=== PATIENT | female | born 1965 | race Caucasian/White ===

== ENCOUNTER 2024-09-01 21:11 | Inpatient (IN) | payer OTHER, SELFPAY ==
[2024-09-01] VITALS (43 sets, daily range): BP systolic 95–235; BP diastolic 67–185
--- NOTE | 2024-09-01 18:50 | ED.CVA ---
History of Present Illness
General
Chief Complaint: CVA/TIA Symptoms
Source: patient and ambulance crew
Exam Limitations: none
Time Seen by Provider: 09/01/24 18:48
Nursing documentation reviewed up to this point in time: agreed with
Onset of Stroke Symptoms
Onset of symptoms known: Yes
Date of onset of symptoms: 09/01/24
Time of onset of symptoms: 17:10
Time pt last seen normal is known: Yes
Date last time pt seen normal: 09/01/24
Time last time pt seen normal: 17:10
History of Present Illness
History of Present Illness:
59-year-old female presents emergency room on stroke alert due to difficulty speaking, and difficulty moving left side. EMS noted a gaze preference.
Past History
Past History
ED Past Medical History: None
ED Past Surgical History: None
Review of Systems
Review of Systems
Allergies reviewed?: Yes
All Other Systems: Not applicable
Phy Exam
Physical Exam
Physical Exam:
Physical Exam
General: Hypertensive
Neck: supple. no meningeal signs. normal posterior pharynx
Heart: s1/s2 regular rate and rhythm, no murmur. equal radial
pulses.
HEENT: Pupils equal round reactive to light, EOMI
Lungs: no acute respiratory distress. clear bilaterally
Abdomen: normal bowel sounds. not tender. no CVAT
Neuro: alert and oriented. no focal neurological deficits, left arm drift
Skin: no rash
Psychiatric: well kept. interactive and cooperative
Extremities: no edema. no calf tenderness. negative homans. good distal pulses
Scores
NIH Stroke Score
Level of Consciousness: 0 - Alert
LOC Questions: 0-Answers both correctly
LOC Commands: 0-Performs both correctly
Best Horizontal Gaze: 0-Normal
Visual [place]: 0=Normal, no visual loss
Facial Palsy: 0=Normal, symmetrical
Motor - Right Arm: 0=No drift 10 seconds
Motor - Left Arm: 1=Drift < 10 seconds
Motor - Right Le-No drift 5 seconds
Motor - Left Le-No drift 5 seconds
Limb Ataxia: 0-Absent
Sensation: 0-Normal
Best Language: 1-Mild aphasia
Dysarthria: 0-Normal
Extinction and Inattention: 0-No abnormality
Total Score:: 2
Thrombolytic Contraindication
Inclusion and Exclusion criteria reviewed: Yes
Reasons for NON-Tx with Thrombolytics ABSOLUTE Exclusions: BP >185/110 and uncontrolled after medication administration
Reasons for NON-Tx with Thrombolytics POSSIBLE Exclusions: Seizure at onset
Stroke Thrombolytic & IAT <6 hours
IAT <6 Hr Exclusion Criteria: Imaging does not show large vessel occlusion as cause of stroke
Course
Orders/Labs/Results
Orders:
Orders
09/01/24 18:43
Electrocardiogram (*1) Urgent
Reason for Study: Other
Other Reason for Exam: Possible Stroke
CT HEAD STROKE ALERT W/o Cont Urgent
Reason For Exam: stroke symptoms
Bedside Glucose- Treatment ONCE
Cardiac Monitoring- Treatment ONCE
EKG- Treatment ONCE
IV Insert/Care/Rem.- Treatment PRN
Vital Signs As Directed
Frequency: Other
Weight As Directed
Frequency: Once
Comment: ZERO STRETCHER SCALE FOR ACCURATE WEIGHT
O2 Therapy [RESP] Urgent
Titrate/Wean O2 to maintain O2 sat greater than (%): 93
Special Instructions: MAINTAIN CONTINUOUS O2 SATS > OR = 93%
09/01/24 18:46
Complete Blood Count/With Diff Urgent
Comprehensive Metabolic Panel Urgent
PTT Urgent
Prothrombin Time Urgent
Troponin I Urgent
09/01/24 18:50
CT HEAD/NECK ANG STROKE ALERT Urgent
Comment:
Reason For Exam: left arm/leg drift, weakness
09/01/24 19:15
Nicardipine 40 mg/200 ml [Cardene] 40 mg in 200 ml IV PER PROTOCOL
Initial dose in mg/hr, then titrate:: 5
Titrate to keep:: BP < 180/105 mmHg
Titrate by mg/hr:: 2.5 mg/hr
Frequency of titrations (minutes):: 5-15 minutes
Maximum dose in mg/hr:: 15
Begin to taper infusion when:: Remained at goal for 2hrs
Taper by mg/hr:: 2.5 mg/hr
Frequency of taper (minutes) if patient maintains goal:: every 15-30 minutes
Taper to off?: Yes
If infusion off & no longer maintaining goal:: Contact Provider
09/01/24 19:17
Lorazepam [Ativan] 2 mg .ROUTE .STK-MED ONE
09/01/24 19:19
Levetiracetam Injectable [Keppra] 1,000 mg .ROUTE .STK-MED ONE
09/01/24 19:26
Propofol 1,000,000 Mcg/100 ml [Diprivan] 1,000,000 mcg in 100 ml .ROUTE .STK-MED
Propofol [Diprivan] 20 ml .ROUTE .STK-MED
09/01/24 19:33
CR Chest Portable - 1 View Urgent
Comment:
Reason For Exam: post intubation
Reason Study Needs to be Portable: Patient Unstable
09/01/24 19:50
ABG [Arterial Blood Gas] Urgent
%Oxygen/Room Air: 100
Comment: pt on vent
09/01/24 19:52
Levetiracetam Injectable [Keppra] 1,000 mg IV NOW STA
09/01/24 19:53
Propofol [Diprivan] 50 mg IV NOW STA
09/01/24 19:58
Triglycerides Routine
Comment: baseline levels with propofol infusion
09/01/24 20:00
Propofol 1,000,000 Mcg/100 ml [Diprivan] 1,000,000 mcg in 100 ml IV PER PROTOCOL
Indication:: Light Sedation
Begin Infusion:: Now
Goal:: RASS 0 to -2
Maximum dose in mcg/kg/min:: 50
Continue currently infusion dose and titrate:: Yes
Titration Instructions:: Titrate by 5-10 mcg/kg/min every 5 minutes until RASS 0 to -2 achieved.
Taper Instructions:: If RASS is at or below goal for 4 consecutive hours decrease infusion by
Taper Instructions:: 5-10 mcg/kg/min every 2 hours to off.
Over-sedation Instructions:: If CPOT 0-2 (at goal) AND RASS -3 to -5 (below goal) decrease sedative by
Over-sedation Instructions:: 50% first. If pain score remains at goal and RASS remains below goal in
Over-sedation Instructions:: 1 hour, decrease opioid infusion by 50%.
Notify provider:: immediately if patient exhibits signs/symptoms of propofol-related
Notify provider:: infusion syndrome.
Additional Instructions:: Patient MUST be mechanically ventilated and MUST recieve analgesia
09/01/24 20:01
Rocuronium [place] [Rocuronium] 50 mg IV NOW STA
09/01/24 20:16
Admit/Transfer Patient As Directed
Co-Sign Provider:
Level of Care: Inpatient admission
Assign to:: ICU
Physician / Group: hospitalist
Diagnosis: hypertensive emergency
Reason for Hospitalization: CVA/TIA/Seizure/ hypertensive emergency
Expected length of stay greater than two midnights?: Yes
ELOS- Estimated Length of Stay in days: 2
I certify the patient meets the requirements for IP care: Yes
PRN Pain Medication Management As Directed
May give lesser potent ordered pain med per pt: Yes
preference::
Protocol:: Medication orders for pain may be administered in a
manner that supports deferring to patient preference
when the pt is:
- Requesting an ordered lesser potent pain medication.
Least to most potent pain medications are defined
as: acetaminophen < NSAID < tramadol < opioids
(morphine, oxycodone, hydromorphone).
- Requesting a lesser dose of the same medication IF
ORDERED.
- Requesting a less intrusive route of administration
if both routes are prescribed by the provider (PO <
IV).
09/01/24 20:17
Code Status As Directed
Resuscitation Status: Full Code
09/01/24 20:29
Propofol [Diprivan] 20 ml .ROUTE .STK-MED
09/01/24 20:38
Lorazepam [Ativan] 2 mg .ROUTE .STK-MED ONE
09/01/24 20:39
ABG [Arterial Blood Gas] Stat
%Oxygen/Room Air: 50
09/01/24 20:40
Lorazepam [Ativan] 2 mg IV NOW STA
09/02/24 Breakfast
NPO
Allow oral meds: No
Allow clear liquids: No
09/02/24 08:00
Polyethylene Glycol Powder [Miralax] 17 grams TUBE DAILY
09/04/24 06:00
Triglycerides Q3D
Comment: every 72 hours while patient is on propofol
09/07/24 06:00
Triglycerides Q3D
Comment: every 72 hours while patient is on propofol
09/10/24 06:00
Triglycerides Q3D
Comment: every 72 hours while patient is on propofol
Abnormal Lab Results
09/01/24 09/01/24 09/01/24
18:44 18:46 19:50
RBC 3.97 L 10^6/uL
(4.20-5.40)
Hct 36.8 L %
(37.0-47.0)
MCH 32.2 H pg
(27.0-31.0)
pH 7.16 L*
(7.35-7.45)
pCO2 46 H mmHg
(32-35)
pO2 117 H mmHg
(83-108)
HCO3 16.4 L mmol/L
(21-28)
ABG O2 Sat (Measured) 100.0 H %
(94-98)
Sodium 132 L mmol/L
(135-145)
Chloride 95 L mmol/L
(98-107)
BUN 6 L mg/dl
(7-17)
Glucose 184 H mg/dl
(70-99)
POC Glucose 187 H mg/dl
(70-99)
09/01/24 18:46
09/01/24 18:46
Vital Signs
Initial and Last Documented VS:
Initial Vital Signs
Pulse Ox
89
09/01/24 18:44
Last Documented Vital Signs
Pulse Resp BP Pulse Ox
134 31 143/85 99
09/01/24 20:45 09/01/24 20:45 09/01/24 20:45 09/01/24 20:35
Procedures
Intubations
Method of Intubation: glidescope
Tube size (cm): 7.0
Placement confirmed by: auscutation, CXR, capnography and direct visualization
Breath sounds after intubation: equal
Intubation complications: no complications
MDM/Problems Addressed
Differential Diagnosis Includes:
Intracranial hemorrhage, CVA, hypertensive cephalopathy, seizure
MDM/Problems Addressed:
59-year-old female with hypertensive cephalopathy, seizure, respiratory failure. Cardene drip, propofol drip, Keppra given. Patient presented awake, and then had left-sided weakness which progressed into a seizure, after receiving her head CT.
She was initially a stroke alert. Patient was started on propofol and intubated to protect airway, propofol for seizure treatment. Admit to ICU. Patient not candidate for TNK due to seizure and blood pressure.
Chronic conditions affecting care: Other (Patient has not seen a doctor in many years)
*Radiology
Radiology exam reviewed: radiology read reviewed (CT head and CT angiography head and neck no acute findings)
*Pulse Oximetry
Patient hypoxic: no
*EKG
Interpreted by ED Provider?: Yes
EKG Intrepretation Date: 09/01/24
EKG Intrepretation Time: 19:11
Interpretation: abnormal
Comparison EKG: no comparison EKG present
Heart Rate: 137
Rate: tachycardiac
Rhythm: sinus tachycardia
[place]: normal axis
Interval: normal interval
QRS Pattern: normal QRS
Ischemia: no ischemia
*Protocol Officer Interpretation
Rate: tachycardiac
Interpretation: abnormal
Heart Rate: 133
Rhythm: sinus tachycardia
*Critical Care Note
Total Time (30-74mins, 75-104mins- exclusive of procedures): 45
comment:
Critical care statement: A total of 45 minutes of critical care time was provided for this patient. This includes management of unstable vital signs, evaluation of the patient at bedside, reviewing the patient's pertinent medical records, discussion
with consultants, review of old EKGs and review of pertinent medical records. This time with separate from time utilized to perform the aforementioned documented procedures
Data Reviewed
Prescriptions/Medications Considered But Not Given:
TNK considered but not indicated.
Patient Management
Social determinants of health affecting care: Poor outpatient follow-up
Discussion with other providers: Hospitalist and Tax Senior Associate (Neurology, Dr. Woods)
Escalation/DeEscalation of care consider admission/obs:
ICU admission indicated
ED Attending Note
-
Portions of this chart may have been created with voice recognition software.� Occasional wrong word or��sound alike� substitutions may have occurred due to the inherent limitations of voice recognition software.
Discharge Plan
Departure
Patient Disposition: Admit
Date of Disposition: 09/01/24
Time of Disposition: 19:35
Admit to: ICU
Presentation/result/management discussed w/ accepting MD/DO: Hospitalist
Patient with high blood pressure during this ER visit?: Yes
Condition: Serious
Discharge Problem:
Hypertensive encephalopathy syndrome, Hypertensive emergency, Respiratory failure, Seizure
Interventions
Interventions:
*Risk Screen - Suicide Last Done: 09/01/24 20:13
*General Assessment Last Done: 09/01/24 20:13
*Neglect/Abuse Screening Last Done: 09/01/24 20:13
ED- Fall Risk Assessment Last Done: 09/01/24 20:13
*ED COVID-19 Vaccine History Last Done: 09/01/24 20:13
ED- Pulmonary Assessment Last Done: 09/01/24 19:00
ED- Neurological Assessment Last Done: 09/01/24 19:18
ED- Cardiac Assessment Last Done: 09/01/24 20:13
ED Swallowing Screen Last Done: 09/01/24 19:00
Discharge Date and Time
Print Language: CANADIAN
[2024-09-01 18:52] LABS: % Basophils 0.6 % (0-2); % Eosinophils 0.8 % (0-6); % Immature Granulocytes 0.5 % (0-0.5); % Lymphocytes 22.5 % (20.5-51.1); % Monocytes 6.2 % (1.7-9.3); % Neutrophils 69.4 % (42.2-75.2); Absolute Basophils 0.1 10^3/uL (0-0.2); Absolute Eosinophils 0.1 10^3/uL (0-0.7); Absolute Lymphocytes 1.9 10^3/uL (1.2-3.4); Absolute Monocytes 0.5 10^3/uL (0.1-0.6); Absolute Neutrophils 5.9 10^3/uL (1.4-6.5); Hematocrit 36.8 % (37.0-47.0); Hemoglobin 12.8 g/dL (12.0-16.0); Mean Corp Hgb Conc. 34.8 g/dL (33.0-37.0); Mean Corpuscular Hgb 32.2 pg (27.0-31.0); Mean Corpuscular Volume 92.7 fL (81.0-99.0); Mean Platelet Volume 9.3 fL (7.4-10.4); Nucleated Red Blood Cells % 0 %; Platelet Count 258 10^3/uL (130-400); Red Blood Cell Count 3.97 10^6/uL (4.20-5.40); Red Cell Dist. Width 13.5 % (11.5-14.5); White Blood Cell Count 8.6 10^3/uL (4.8-10.8)
[2024-09-01 18:54] LABS: Glucose - Point of Care 187 mg/dl (70-99)
[2024-09-01 19:11] LABS: INR 1.01; PT 13.1 Sec (11.4-14.6)
[2024-09-01 19:12] LABS: APTT 23.8 Sec (23.4-35.0)
[2024-09-01 19:17] LABS: ALT (SGPT) 21 U/L (0-35); AST (SGOT) 30 U/L (14-36); Albumin 4.8 g/dl (3.5-5.0); Alkaline Phosphatase 68 U/L (38-126); Blood Urea Nitrogen 6 mg/dl (7-17); Calcium 10.1 mg/dl (8.4-10.2); Carbon Dioxide 22 mmol/L (22-30); Chloride 95 mmol/L (98-107); Glucose 184 mg/dl (70-99); Potassium 3.9 mmol/L (3.5-5.1); Sodium 132 mmol/L (135-145); Total Bilirubin 0.5 mg/dl (0.2-1.3); Total Protein 7.7 g/dl (6.3-8.2); eGFR > 60.00
[2024-09-01] MEDS: CARDENE 200 IV (19:18)
[2024-09-01] MEDS: KEPPRA 1000 MG IV (19:24)
[2024-09-01 19:28] LABS: Troponin I < 0.012 ng/ml
[2024-09-01] MEDS: DIPRIVAN 50 MG IV (19:28)
[2024-09-01] MEDS: ROCURONIUM 50 MG IV (19:29)
[2024-09-01] MEDS: DIPRIVAN 100 IV (19:30)
[2024-09-01 20:01] LABS: HCO3 16.4 mmol/L (21-28); PCO2 46 mmHg (32-35); PO2 117 mmHg (83-108)
[2024-09-01 20:03] LABS: pH 7.16 (7.35-7.45)
--- NOTE | 2024-09-01 20:29 | HPS.HSE ---
Family Physician
-
Family Physician: INTERVIEWE UNKNOWN - PT NOT
Chief Complaint
-
Stroke alert for difficulty speaking
History of Present Illness
This is a 59-year-old female with unknown past medical history who presents to the emergency department via a stroke alert for difficulty speaking. Patient intubated at time of my interview unable to get a history from patient.
On arrival in the emergency department the patient had the difficulty moving left side. She was confused and incoherent. She had a CT scan and upon arrival from the CT scan started having generalized tonic-clonic seizures. She was very
hypertensive and with the seizures the patient was sedated and intubated.
Initial blood pressure was 231/140, she was tachycardic to the 130s respiratory was 16 with oxygen saturation of 97%. ECG shows sinus tachycardia at 137. Chest x-ray shows a left basilar atelectasis but otherwise shows no infiltrates or
pneumothorax and the ET tube was separately placed. CT of the head shows no acute bleed, massive stroke or mass effect. The CT angio shows no critical or hemodynamically significant significant stenosis
CBC was unremarkable with normal white count hemoglobin of 12.8 and a platelet count of 258. Troponin was negative. Chemistries were notable for a sodium of 132 but otherwise unremarkable. LFTs were normal.
Medical History
Past Medical History
Past Medical History: Reports Other (Unable to determine)
Past Surgical History: Reports Other (Unable to determine)
Social History
Unable to obtain full social history at this time due to: Patient Intubation
Family History
Family History: Unable to Obtain
Allergies / Home Medications
Allergies reflects when Allergies were last updated in [facility].
Home Medications with original date entered in [facility]
Allergy/Medication List:
Allergies
Allergy/AdvReac Type Severity Reaction Status Date / Time
No Known Allergies Allergy Verified 09/01/24 19:14
If medication reconciliation has not been performed, why?: Unresponsive
Review of Systems
-
Unable to obtain full review of systems at this time due to: Patient Intubation
Physical Exam
Vital Signs
Vital Signs
Pulse Resp BP Pulse Ox
150 18 179/123 98
09/01/24 20:20 09/01/24 20:20 09/01/24 20:20 09/01/24 20:20
Physical Exam
General: Well Developed and Intubated
HEENT: NormoCephalic, Anicteric, Moist mucous membranes, Atraumatic and PERRLA
Respiratory: Clear
Cardiac: S1/S2, Regular Rhythm and Tachycardia
Breast: Deferred by me
GI: Soft, Non Tender, Non Distended and Normal Bowel Sounds
Rectal: Deferred by Provider
Genito-urinary: Deferred by me
Musculoskeletal: No Clubbing, No Cyanosis and No Edema
Skin: Warm and Rash (livedo )
Neuro: Sedated
Hematologic/Lymphatic: No Lymphadenopathy
Laboratory Results
-
09/01/24 18:46
09/01/24 18:46
Laboratory Results
PT 13.1 Sec (11.4-14.6) 09/01/24 18:46
INR 1.01 09/01/24 18:46
APTT 23.8 Sec (23.4-35.0) 09/01/24 18:46
pH 7.16 (7.35-7.45) L* 09/01/24 19:50
pCO2 46 mmHg (32-35) H 09/01/24 19:50
pO2 117 mmHg (83-108) H 09/01/24 19:50
HCO3 16.4 mmol/L (21-28) L 09/01/24 19:50
Total Bilirubin 0.5 mg/dl (0.2-1.3) 09/01/24 18:46
AST 30 U/L (14-36) 09/01/24 18:46
ALT 21 U/L (0-35) 09/01/24 18:46
Alkaline Phosphatase 68 U/L (38-126) 09/01/24 18:46
Troponin I < 0.012 ng/ml 09/01/24 18:46
Data Reviewed
-
Diagnostic Radiology: Image Personally Visualized and interpreted
CT Scan: Report Reviewed by me
Medical Tests (Nuc Med, Echo, EKG etc): Image Personally Visualized and interpreted
Lab Data: Labs Reviewed by me
Old Records: Reviewed
Impression/Plan
-
IMPRESSION:
PLAN:
1. Hypertensive emergency - Patient hypertensive to 231/140 on arrival. Encephalopathic with left sided weakness followed by developement of seizure. ECG non-ischemic. Trop negative. CT head negative. Labs unremarkable.
- admit to icu
- nicardipine gtt, target SBP < 160 for now
- echo in am
- NPO
2. Seizure d/o - New onset seizures in setting of hypertensive emergency. No intracranial hemorrhage on initial head CT prior to the seizures.
- propofol gtt
- keppra 1g iv q 12
- neuro exams q 6
- neurology consulted
3. CVA/TIA - unclear, report of left sided weakness and aphasia triggering stroke alert. Hypertensive emergency and seizure, not a tpa candidate. CT head negative.
- d/w neuro. hemodynamic management and seizure tx for now
- no asa or plavix
- cardiovascular labs, echo in am
- repeat CT head in am
- mri pending stabilization
4. Pulm - Intuabed
- ac 18 400 50 5. Repeat gas in 30 minutes
- gi ppx with ppi
- scds for now
- [employer] certified network associate consulted.
Code Status full code
[2024-09-01] MEDS: ATIVAN 2 MG IV (20:41)
--- NOTE | 2024-09-01 20:47 | RESPNOTE ---
pt intubated in ED,pt preoxygenated via ambu bag prior to intubation. tolerated intubation well. 7.0 ETT @ 22cm placed. tolerating above vent settings well, will continue to monitor.
[2024-09-01 21:04] LABS: B.E. -2.4 mmol/L; HCO3 21.2 mmol/L (21-28); PCO2 32 mmHg (32-35); PO2 123 mmHg (83-108); pH 7.43 (7.35-7.45)
[2024-09-01 21:11] LABS: Amphetamines Negative (Negative); Barbiturates Negative (Negative); Benzodiazepines Negative (Negative); Buprenorphine Negative (Negative); Cocaine Negative (Negative); Marijuana Negative (Negative); Methadone Negative (Negative); Methamphetamines Negative (Negative); Opiates Negative (Negative); Phencyclidine Negative (Negative); Tricyclic Antidepressants Negative (Negative)
[2024-09-01 21:35] LABS: Triglycerides 144 mg/dl (10-149)
[2024-09-01 21:38] LABS: Alcohol None Detected
[2024-09-01] MEDS: SUBLIMAZE 50 MCG IV (21:40)
[2024-09-01] MEDS: SUBLIMAZE 100 IV (21:51)
[2024-09-01 22:26] LABS: Urine Albumin Negative (Neg - Trace); Urine Bilirubin Negative (Negative); Urine Character Clear (Clear); Urine Color Yellow; Urine Glucose 3+ (Negative); Urine Ketone Trace (Negative); Urine Leukocyte Negative (Negative); Urine Nitrite Negative (Negative); Urine Occult Blood Negative (Negative); Urine Urobilinogen Negative (Neg - 1+)
[2024-09-01 23:24] LABS: Blood Urea Nitrogen 8 mg/dl (7-17); Calcium 9.8 mg/dl (8.4-10.2); Carbon Dioxide 24 mmol/L (22-30); Chloride 95 mmol/L (98-107); Glucose 162 mg/dl (70-99); Potassium 4.4 mmol/L (3.5-5.1); Sodium 131 mmol/L (135-145); eGFR > 60.00
[2024-09-02] VITALS (82 sets, daily range): BP systolic 66–152; BP diastolic 47–131; BMI 20.5
[2024-09-02] MEDS: SUBLIMAZE 50 MCG IV ×7 (00:16→22:08)
[2024-09-02] MEDS: DIPRIVAN 100 IV ×2 (00:55→06:06)
--- NOTE | 2024-09-02 01:10 | PTCARENOTE ---
rec`d pt at 2230, intubated and sedated on prop. pt restless in bed. fent gtt started. scds. st on monitor. afebrile. msas ordered. #7 ett on rt @22. vent settings 18/400/40%/5 of peep. 99% POX. therm dempsey. restraints placed as ordered. 18 left
FA, 18 left AC and 18 rt AC. prop and fent gtts. at bedside. safe environment maintained.
[2024-09-02] MEDS: TYLENOL 650 MG PO (02:23)
[2024-09-02 03:39] LABS: Hematocrit 27.6 % (37.0-47.0); Hemoglobin 9.6 g/dL (12.0-16.0); Mean Corp Hgb Conc. 34.8 g/dL (33.0-37.0); Mean Corpuscular Hgb 31.6 pg (27.0-31.0); Mean Corpuscular Volume 90.8 fL (81.0-99.0); Mean Platelet Volume 9.2 fL (7.4-10.4); Platelet Count 215 10^3/uL (130-400); Red Blood Cell Count 3.04 10^6/uL (4.20-5.40); Red Cell Dist. Width 13.4 % (11.5-14.5); White Blood Cell Count 8.4 10^3/uL (4.8-10.8)
[2024-09-02 03:42] LABS: INR 1.12; PT 14.3 Sec (11.4-14.6)
[2024-09-02 03:43] LABS: APTT 23.8 Sec (23.4-35.0)
[2024-09-02 04:11] LABS: Blood Urea Nitrogen 7 mg/dl (7-17); Calcium 8.7 mg/dl (8.4-10.2); Carbon Dioxide 19 mmol/L (22-30); Chloride 103 mmol/L (98-107); Glucose 75 mg/dl (70-99); HDL Cholesterol 64 mg/dl; LDL Cholesterol, Calculated 171 mg/dl; Potassium 3.2 mmol/L (3.5-5.1); Sodium 135 mmol/L (135-145); Total Cholesterol 250 mg/dl (50-199); Triglyceride 77 mg/dl (10-149); Very Low Density Lipoprotein 15 mg/dl (0-30); eGFR > 60.00
[2024-09-02] MEDS: SUBLIMAZE 100 IV (04:51)
[2024-09-02] MEDS: KCL ELIXIR 40 MEQ TUBE (05:23)
--- NOTE | 2024-09-02 07:31 | CON.INTV ---
Consultation
Consultation Request
Date/Time Consultation Requested: 09/02/24
Date/Time Consultation Performed: 09/02/24
Performing Provider: Indira
Reason for Consultation: ICU
Medical History
-
History of Present Illness:
Patient is a 59-year-old female with previous unknown past history presenting to ER for difficulty speaking and moving left side. She was notably confused and incoherent, stroke alert was called. Upon arrival from CT scan she developed
witnessed generalized tonic-clonic seizures. She was then intubated and sedated. Initial blood pressure was notably 231/140, heart rate 130s. CT initially is negative. CT angio demonstrating no critical or hemodynamic stenosis. She is now
admitted to ICU for further management.
.
Past Medical History
Past Medical History: Other (see list below)
Social History
Tobacco: Non-smoker
Alcohol: Former
Drug: None
Family History
Family History: Reviewed & Not Pertinent
Allergies / Home Medications
Allergies
Allergy/AdvReac Type Severity Reaction Status Date / Time
No Known Allergies Allergy Verified 09/01/24 19:14
Review of Systems
-
Unable to Obtain full review of systems at this time due to: Patient Intubation
History Source: Family and Transfer Record
Vitals / Labs / Diagnostic Testing
Vital Signs
Temp Pulse Resp BP Pulse Ox
100.9 F H 102 21 152/131 96
09/02/24 03:34 09/02/24 05:30 09/02/24 05:30 09/02/24 05:30 09/02/24 04:00
Lab Data
09/02/24 03:24
09/02/24 03:24
Laboratory Results
09/01/24 09/01/24 09/01/24
18:46 19:50 20:53
PT 13.1
INR 1.01
APTT 23.8
pH 7.16 L* 7.43
pCO2 46 H 32
pO2 117 H 123 H
HCO3 16.4 L 21.2
O2 Delivery Level
09/02/24
03:24
PT 14.3
INR 1.12
APTT 23.8
pH
pCO2
pO2
HCO3
O2 Delivery Level
Diagnostic Testing:
Physical Exam
-
HEENT: Normocephalic, Anicteric and Moist Mucous Membranes
Cardiovascular: S1/S2 and Regular Rhythm
Respiratory: Clear and Non-Labored Respirations
GI: Soft, Non Distended and Non Tender
Neurology: Awake, Alert, No Motor Deficits and Other (confused, lethargic)
Skin: Warm and Dry
General: Comfortable and Other (NAD)
Assessment
-
Patient is a 59-year-old female with previous unknown past history presenting to ER for difficulty speaking and moving left side. She was notably confused and incoherent, stroke alert was called. Upon arrival from CT scan she developed
witnessed generalized tonic-clonic seizures. She was then intubated and sedated. Initial blood pressure was notably 231/140, heart rate 130s. CT initially is negative. CT angio demonstrating no critical or hemodynamic stenosis. She is now
admitted to ICU for further management.
Acute witnessed generalized tonic-clonic seizure
s/p Intubation for airway protection
Confusion/left-sided weakness/aphasia
Hypertensive emergency 231/140
Hyponatremia, mild
Hyperglycemia
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
Chronic ETOH use history, sober last month
HTN
Plan
+ current signs of metabolic encephalopathy, possibly postictal
Had witnessed tonic-clonic seizure, placed on propofol, EEG negative
Neurology evaluation obtained
notes there is chronic alcohol history, patient has been drinking every day previously but had cut down in the past year and 1/2-1 to 2 drinks per week.
He notes that they both have gone cold turkey in the last 30 days.
She has no prior history of seizure disorder
Pain/sedation: Fentanyl/propofol, can start weaning sedation. Add Precedex and phenobarb taper
RASS goals: 0
Need eventual MRI
Hemodynamically stable, not requiring pressors.
Cardiac history reviewed--hypertension, not on medications
Off Cardene prolonged time spent coordinating with
ECHO reviewed indicating possible right atrial mass, discussed with cardiology
Consult placed
Will obtain CTA imaging as well
Monitor on telemetry
Intubated for airway protection
Vent setting reviewed: AC 400/18/40/5+
Prior history of lung disease: None
Supplemental O2 as indicated to maintain sats > 89%
CXR/CT reviewed indicating no acute disease
SBT planning
NPO, resume diet when able
Electronics Design Engineer recommendations
Aspiration precautions, HOB > 30 degrees
Speech therapy eval can be considered if at elevated risk
GI prophylaxis if indicated for mechanical ventilation >48 hours, prior history of GERD, stress ulcer formation in the critically ill
Creat at baseline, no history of renal disease
Void trials
Follow urine output, critical I/Os
Replete electrolytes as needed
No signs/symptoms suspicious for infectious etiology at this time
Observe off antibiotics for now
Follow fever trend, WBC count
CBC stable, no signs of bleeding or coagulopathy.
DVT prophylaxis as assessed based on risk, including mechanical SCDs
Can transfuse if indicated for Hb <7, plt < 10
INR WNL
No prior h/o diabetes or thyroid disease
Monitor accuchecks PRN/SS coverage if needed
Diagnostic Data
Chest X-Ray: 09/01/24- Endotracheal tube with tip in trachea approximately 1.5 cm above the donta and nasogastric tube with tip in the stomach. No pneumothorax. Mildly elevated left hemidiaphragm with likely mild left basilar subsegmental
atelectasis.
CT Scan: HEAD 09/02/24- No acute intracranial abnormality noted. Chronic opacification of the left maxillary and frontal sinuses.
H&N 09/01/24- No findings to suggest proximal intracranial arterial stenosis or vessel cut off bilaterally.
Nonhemodynamically significant atherosclerotic changes in the carotid bulbs and proximal internal carotid arteries bilaterally.
No findings to suggest internal carotid artery or vertebral artery dissection bilaterally.
Echo: pending
PFT's:
Reports and relevant images were personally reviewed.
-----
Critical care time 100 mins -- this includes review of history, physical exam, medications, hemodynamic/ventilator parameters, laboratory data, imaging and discussion with house staff, pharmacy, respiratory therapy, wood flooring specialist, and nursing.
Prolonged time spent coordinating with cardiology, radiology and care team.
[2024-09-02] MEDS: MIRALAX TUBE (07:58)
[2024-09-02] MEDS: KEPPRA 1000 MG IV ×2 (08:51→21:10)
[2024-09-02] MEDS: PROTONIX IV 40 MG IV (08:51)
[2024-09-02 09:25] LABS: Glycohemoglobin (HgbA1c) 5.1 % (4.0-5.6)
--- NOTE | 2024-09-02 11:19 | CM ---
CM following re: discharge planning.
Discussed in Rounds, reviewed pt's chart met with pt and pt's at bedside. .
Pt is a 59 year old female, admitted with primary dx of Hypertensive emergency, Seizure d/o - New onset seizures in setting of hypertensive emergency. Per Rounds meeting, pt remains intubated, continue supportive care.
Per , pt lives with him in a 2SH, 2 steps to enter, couple have no children. 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 No DME, VN or SNF history.
PCP: Tano Smith
Pharmacy: [facility]
D/C plan; uncertain at this time and will depend on pt's progress.
CM will follow with discharge plan updates as hospitalization progresses
[2024-09-02 11:23] LABS: Hemoglobin 10.4 g/dL (12.0-16.0); Mean Corp Hgb Conc. 34.7 g/dL (33.0-37.0); Mean Corpuscular Hgb 31.7 pg (27.0-31.0); Mean Corpuscular Volume 91.5 fL (81.0-99.0); Mean Platelet Volume 9.5 fL (7.4-10.4); Platelet Count 225 10^3/uL (130-400); Red Blood Cell Count 3.28 10^6/uL (4.20-5.40); Red Cell Dist. Width 13.6 % (11.5-14.5); White Blood Cell Count 9.7 10^3/uL (4.8-10.8)
[2024-09-02 11:38] LABS: Blood Urea Nitrogen 8 mg/dl (7-17); Calcium 8.5 mg/dl (8.4-10.2); Carbon Dioxide 19 mmol/L (22-30); Chloride 104 mmol/L (98-107); Glucose 85 mg/dl (70-99); Magnesium 1.5 mg/dl (1.6-2.3); Phosphorus 2.9 mg/dl (2.5-4.5); Potassium 3.7 mmol/L (3.5-5.1); Sodium 135 mmol/L (135-145); eGFR > 60.00
[2024-09-02] MEDS: D5/0.45%NSS with KCL 20 MEQ 1000 IV (11:42)
--- NOTE | 2024-09-02 12:04 | PTCARENOTE ---
Received pt at 0700, restless and agitated. Fentanyl boluses given and gtt increased per protocol. Low BP around 1030. Propofol gtt dose cut in half. Pt restless and resistant to care but follows commands at times.
Sinus rhythm on monitor. Tolerating vent. Lungs course. Scant secretions.
No BM. Low urine output. IVF started.
All other assessments unchanged.
EEG and ECHO completed.
--- NOTE | 2024-09-02 12:26 | W.PN.HOSP.TC ---
Today's Communication/Plan
-
see bold
Assessment / Plan
Assessment / Plan
Gen: NAD, NCAT
Neck: supple.
CV: RRR, +S1/S2, no m/r/g.
Resp: CTAB, no rales, wheezes, or rhonchi.
Abd: +BS, soft, NT, ND
Skin: No rashes.
Neuro: sedated
Psych: calm
CTA head/neck 09/01/24: No findings to suggest proximal intracranial arterial stenosis or vessel cut off bilaterally. Nonhemodynamically significant atherosclerotic changes in the carotid bulbs and proximal internal carotid arteries bilaterally. No
findings to suggest internal carotid artery or vertebral artery dissection bilaterally.
CXR 09/02/24: Stable positioning of the support lines and tubes. Minimal left basilar atelectasis, unchanged.
CT brain 09/02/24: No acute intracranial abnormality noted. Chronic opacification of the left maxillary and frontal sinuses.
Seizure activity:
-note, presented with reports of left-sided weakness and expressive aphasia. The patient was not a TNK candidate.
-Currently intubated and sedated (acute hypoxemic and hypercapnic respiratory failure)
-Currently on fentanyl/propofol infusions
-currently on assist control MV. Plan is to wean sedation and attempt extubation after SBT today as per pier master assistant.
-cont Keppra
-check EEG
-neuro following
-check MRI brain (timing to be discussed with neuro and pier master assistant)
Hypertensive emergency:
-was on nicardipine gtt, now off
-allow for permissive HTN
-check echo
Hypokalemia, resolved
Total critical care time spent = 35 min
Anticipated Discharge: > 48 hours
Subjective/Interval History
-
Date of Service: September 02, 2024
Objective Data
-
Labs:
Laboratory Results
09/02/24 09/02/24 09/02/24
03:24 11:06 11:07
WBC 8.4 9.7
Hgb 9.6 L D 10.4 L
Hct 27.6 L 30.0 L
Plt Count 215 225
PT 14.3
INR 1.12
APTT 23.8
Sodium 135 135
Potassium 3.2 L D 3.7
Chloride 103 104
Carbon Dioxide 19 L 19 L
BUN 7 8
Creatinine 0.7 0.7
Glucose 75 85
Calcium 8.7 8.5
Vital Signs:
Vital Signs
Temp Pulse Resp BP Pulse Ox
98.8 F 71 18 95/77 100
09/02/24 11:58 09/02/24 11:02 09/02/24 11:02 09/02/24 11:02 09/02/24 11:00
I&O
09/01/24 09/02/24 09/03/24
06:59 06:59 06:59
Intake Total 115.8 / 135.1 129.9 / 129.9
Output Total 610 / 625 95 / 95
Balance -494.2 / -489.9 34.9 / 34.9
--- NOTE | 2024-09-02 13:19 | EEG.RPT ---
Electroencephalogram Report
Recording
Date of EE09/02/24
Type of EEG: Routine
Length of EEG recordin mins
Done with Video Recording: Yes
Patient Status: Inpatient
Recording Conditions: Other (sedated)
Hyperventilation Performed: No
Photic Stimulation Performed: Yes
Report
METHODS
A 21 channel digitized electroencephalogram was performed at [facility] The 10/20 international system of electrode placement was used. In addition to EEG, the patient was monitored for EKG. The duration of the recording was 27 minutes.
BACKGROUND
During the awake state, with the eyes closed, the background consisted of a normal amplitude, up to 10 Hertz posterior reactive rhythm that attenuated appropriately with eye opening. At times the study consisted of diffuse slowing of the background
to 4-7Hz frequencies.
PHOTIC STIMULATION
Photic stimulation using a step-mejias increase in photic frequency varying from 1-31 Hertz resulted in no driving responses but no appearance of abnormal activity.
CLINICAL EVENTS
An episode of 'full body movement' had no epileptiform correlate.
INTERPRETATION AND CLINICAL CORRELATION
This EEG is abnormal due to the presence of diffuse slowing of the background to delta to theta range frequencies but was at times normal. The study is consistent with mild to moderate diffuse cerebral dysfunction, nonspecific in etiology. An
episode of 'full body movement' had no epileptiform correlate. The study was limited at times by muscle artifact.
[2024-09-02] MEDS: PRECEDEX 100 IV (13:30)
--- NOTE | 2024-09-02 14:28 | CON.CAR ---
Addendum entered and electronically signed by Camilla Steele DO 09/03/24 07:24:
I saw and examined the patient.
The Mining Teacher's note was reviewed and I agree with the note.
Comment: Patient seen and examined 09/02/24 with cardiac PA after 2D echocardiogram. This is a late entry. Clara is a 59 yo F with PMH of bulimia, ETOH disorder (who stopped drinking with her last month per ) and is a life long
nonsmoker. She presented 09/01/24 as a stroke alert with new altered mental status with altered speech, confusion, left sided weakness with HTN emergency and reported BP 230/140mmHg. She has no history of HTN. states she had complained of
headaches over the last week or two. Patient's does not note recent complaints and patient of chest pain, shortness of breath, palpitations, lightheadedness or dizziness. Denies edema. states she was recently laid off of her job
which has been a source of stress recently. No alcohol detected in patient on arrival. UDS negative.
She was seen but Neurology for stroke alert. She was not felt to be a TNK candidate. She then had seizure activity upon return from CT scan in ER and was intubated for airway support. Head CTs serially negative for CVA; brain MRI unable to be
obtained while intubated. Following intubation she was placed on Nicardipine drip, Keppra and propofol and has had no further seizures. EEG showed diffuse slowing of the background frequencies without epileptiform discharges per neurology. Denies
history of hypertension. She remains agitated with attempting to wean sedation and failure wean today. She is off Cardene gtt with low BP today, currently 100s/70s. She is sinus in the 60-70s. No arrhythmia on telemetry. with BP Echocardiogram
today prompted cardiology consult.
Echocardiogram was technically difficult with normal LV systolikc function, Left ventricular ejection fraction estimated by Alford's method 60-65%. Mild to moderate concentric left ventricular hypertrophy. Mildly reduced right ventricle systolic
function with mildly increased right ventricular wall thickness. Right atrium poorly visualized. There is a nonmobile echodensity 2.4 x 2.0 cm in the right atrium; and limited subcostal views this may represent lipomatous hypertrophy of the
interatrial septum however cannot exclude a right atrial mass. Trace mitral regurgitation. Trileaflet, mildly sclerotic aortic valve without stenosis or significant regurgitation. Trace tricuspid regurgitation. Estimated pulmonary artery pressure of
27 mmHg assuming a right atrial pressure of 3 mmHg. Trivial-small pericardial effusion. Dilated aortic root. Sinus of Valsalva measures 4.1 cm. Interatrial septum is poorly visualized but in limited subcostal views appears lipomatous.
General: Intubated and sedated, with some voluntary movements. in restraints.
HEENT: ETT, mmm
Respiratory: Clear and Non Labored Respirations
Cardiac: S1/S2, Regular Rhythm no murmur. no rub
GI: Soft, Non Tender, Non Distended and Normal Bowel Sounds
Musculoskeletal: No Edema. no rash.
Plan:
Presented with HTN emergency without prior history of HTN and concern for stroke with left sided weakness, confusion anf fixed left lateral gaze who suffred witness seizure in ER now intubated and sedated.
-Patient initially on IV Cardene which is now off with hypotension today
-Monitor BP trends and avoid hypotension; BP current 100/70s
-Monitor tele- no arrhythmia so far
-EKG reviewed. Initial ST with NSST with repeat NSR with iRBBB.
-Neurology consulted: eventual MRI. EEG today without further seizure activity
-Labs reviewed: NA was 132, K3.2. CO2 initially 24, than 17-19. BUN/Cr 0.6. elevated BS with HbA1C 5.1%. Mag 1.5. CTNI < 0.012. TC 250, LDL 171, HDL 64, TG 77. Hb 12.8 than 9.6 now 10.4. normal WBC/plts
-Consider addition of aspirin per neurology
-LDL 171, consider addition of statin when able
-Monitor K/Mag and replete as needed
-Cardiology consulted due to abnormality of right atrium by echo 09/02/2024
-Discussed with crematory attendant and hospitalist
-Technically difficult study. Echodensity likely part of a suspected lipomatous septum but will need additional imaging to completely less likely RA mass
-Will plan for CT chest to see if mass is visualized
-Pending results can consider repeat TTE or MELY
Original Note:
Consultation
Consultation Request
Date/Time Consultation Performed: 09/02/24
Requesting Provider: Dr. Nely Jacobson
Performing Provider: Brielle Roca PA-C for Dr. Steele
Reason for Consultation: abnormal echo, CVA
Medical History
-
Chief Complaint: change in mental status
History of Present Illness:
Patient is a 59 yo F with PMH of bulimia, ETOH disorder (who stopped drinking with her last month per ). had noted that patient had L lateral gaze around 4:30 yesterday afternoon. He also noted she had altered speech,
confusion, and was off balance when she got up to attempt to walk to bathroom. She was not felt to be TNK candidate. She then had seizure activity upon return from CT scan in ER and was intubated, sedated. Head CTs serially negative for CVA, brain
MRI unable to be obtained while intubated. She had hypertensive emergency on arrival. states she had complained of headaches over the last week or two. Denies history of hypertension. Remains agitated with attempting to wean sedation.
Echocardiogram today showed preserved EF with nonmobile echodensity in right atrium, resulting in cardiology consultation. Patient's does not note recent complaints and patient of chest pain, shortness of breath, palpitations,
lightheadedness or dizziness. states she was recently laid off of her job which has been a source of stress recently. No alcohol detected in patient on arrival. UDS negative.
PMH:
EtOH disorder
History of bulimia
Past Medical History
Past Medical History: Other (in HPI)
Social History
Tobacco: Non-Smoker
Alcohol: Former
Personal:
Living: With Family
Employment: Not Employed (recently laid off)
Family History
Family History: CAD ( and CVA in father)
Allergies / Home Medications
Allergy/AdvReac Type Severity Reaction Status Date / Time
No Known Allergies Allergy Verified 09/01/24 19:14
Review of Systems
-
Unable to obtain full review of systems at this time due to: Patient Intubation
History Source: Family
Physical Exam
Vital Signs
Temp Pulse Resp BP Pulse Ox
98.8 F 71 18 95/77 100
09/02/24 11:58 09/02/24 11:02 09/02/24 11:02 09/02/24 11:02 09/02/24 11:00
Lab Results
09/02/24 11:07
09/02/24 11:06
Troponin I < 0.012 ng/ml 09/01/24 18:46
Physical Exam
General: No Apparent Distress, Intubated and Other (sedated, with some voluntary movements. in restraints)
HEENT: Normocephalic and Moist Mucous Membranes
Respiratory: Clear and Non Labored Respirations
Cardiac: S1/S2, Regular Rhythm and Murmur
GI: Soft, Non Tender, Non Distended and Normal Bowel Sounds
Musculoskeletal: No Clubbing, No Cyanosis and No Edema
Skin: Warm and Dry
Neuro: Sedated
Impression / Plan
-
Primary Licensing Director: none
Assessment:
Presentation with altered mental status
Concern for acute CVA
Seizure activity
HTN emergency
Abnormality of RA by echo 09/02/24
Anemia
Hypomagnesemia
EtOH disorder
History of bulimia
ECHO 09/02/24: TDS, EF 60 to 65%, mild to moderate concentric LVH, right atrium poorly visualized but not mobile echodensity 2.4-2.0 cm in right atrium possible lymphadenitis hypertrophy of interatrial septum however cannot exclude RA mass, PAP 27
mmHg, trivial to small pericardial effusion, dilated aortic root
Plan:
-Patient presented with fixed left lateral gaze, altered mental status with concern for acute CVA. Also had seizure activity in the emergency room and with hypertensive emergency on arrival. Currently intubated and sedated. Cardiology consulted
due to abnormality of right atrium by echo 09/02/2024
-Plan for CTA of chest today. Pending results, would consider for MELY in a.m.
-Discussed with crematory attendant. Will remain intubated overnight
-With hypertensive emergency on arrival, now relatively hypotensive. Not on any antihypertensives at present. Follow blood pressures
-for brain MRI once extubated
-Consider addition of aspirin per neurology
-LDL 171, consider addition of statin when able
-in SR upon review of tele overnight, follow
-replete mag
-Discussed with at bedside
Data Reviewed
-
EKG: Tracing Personally Visualized and interpreted
CT Scan: Report Reviewed by me
Medical Tests (Nuc Med, Echo etc): Report Reviewed by me
Labs: Labs Reviewed by me
Old Records: Reviewed
[2024-09-02] MEDS: MAGNESIUM SULFATE 50 IV (14:41)
[2024-09-02] MEDS: PHENOBARBITAL 32.5 MG IV ×2 (14:42→22:00)
--- NOTE | 2024-09-02 15:21 | W.PN.NEURO.1 ---
Today's Communication / Plan
-
Continue ICU management
Continue Keppra 1000 mg twice a day
Continue ventilator weaning protocol
MRI of head after extubation
Neuro Assessment/Plan
Assessment
59-year-old lady with history of uncontrolled hypertension who had been admitted with left-sided weakness and seizures. Following intubation she was placed on Nicardipine drip, Keppra and propofol and has had no further seizures. EEG showed
diffuse slowing of the background frequencies without epileptiform discharges
Plan
1. Blood pressure management
2. Keppra 1000 mg twice a day
3. Taper propofol and extubate
Subjective/Objective
Subjective Data
Date of Service: September 02, 2024
Patient remains intubated and sedated. But able to be aroused and follows command. No weakness of the face or extremities
Objective Data
Vital Signs
Temp Pulse Resp BP Pulse Ox
37.1 C 71 18 95/77 100
09/02/24 11:58 09/02/24 11:02 09/02/24 11:02 09/02/24 11:02 09/02/24 11:00
Lab Results
09/02/24 11:07
09/02/24 11:06
PT 14.3 Sec (11.4-14.6) 09/02/24 03:24
INR 1.12 09/02/24 03:24
APTT 23.8 Sec (23.4-35.0) 09/02/24 03:24
Sodium 135 mmol/L (135-145) 09/02/24 11:06
Potassium 3.7 mmol/L (3.5-5.1) 09/02/24 11:06
BUN 8 mg/dl (7-17) 09/02/24 11:06
Glucose 85 mg/dl (70-99) 09/02/24 11:06
Calcium 8.5 mg/dl (8.4-10.2) 09/02/24 11:06
Phosphorus 2.9 mg/dl (2.5-4.5) 09/02/24 11:06
LDL Cholesterol, Calc 171 mg/dl 09/02/24 03:24
Ur Buprenorphine Cancelled 09/01/24 22:14
Patient Allergies
No Known Allergies Allergy (Verified 09/01/24 19:14)
Physical Exam
-
General: Well Developed and Well Nourished
Eyes: Able to visualize OU, Unremarkable and Round OU
HEENT: Normocephalic and Atraumatic
Neck: Full Range of Motion
Respiratory: Clear to Auscultation
Cardiac: Regular Rhythm and No Murmur
GI: Normal Bowel Sounds and Soft
Skin: Unremarkable
Extremities: No Clubbing, No Cyanosis and No Edema
Extended Neurological Exam
Mood & Affect: Unable to Assess
Attention Span & Concentration: Interactive
Memory: Unable to Assess
Tremor: Hand Tremor Absent and Head Tremor Absent
Involuntary Movement: None
Speech: Unable to Assess (Intubated on ventilator)
Cranial Nerve II: Left Eye: Pupillary Reactivity Unremarkable, Pupillary Size Unremarkable and Visual [place] Grossly Intact
Cranial Nerve II: Right Eye: Pupillary Reactivity Unremarkable, Pupillary Size Unremarkable and Visual [place] Grossly Intact
Cranial Nerves III, IV, : Extraocular Movement: Extraocular Movement Full in all Directions
Cranial Nerve V: Facial Sensation: Intact to Light Touch
Cranial Nerve VII: Facial Symmetry: Normal Facial Symmetry
Cranial Nerve VIII: Hearing: Unable to Assess
Cranial Nerves IX, X: Palate Movement: Unable to Assess
Cranial Nerve XI: Shoulder Shrug: Unremarkable
Cranial Nerve XII: Tongue Protusion: Unable to Assess
Muscle Strength, Overall: Spontaneously Moves
Muscle Bulk & Tone: Bulk Unremarkable and Tone Unremarkable
Pronator Drift: No Drift in Upper Extremities and No Drift in Lower Extremities
Deep Tendon Reflexes: Unremarkable Throughout
Cold Sensation: Unable to Assess
Vibration Sensation: Unable to Assess
Touch Sensation: Withdrawal to Pain
Coordination: Reaches for Objects without Difficulty
Babinski Sign: Absent Bilaterally
Gait & Station: Unable to Assess
Data Reviewed
-
EEG: Report Reviewed (Diffuse slowing of background frequencies(6-7Hz). No focal slowing. No epileptiform discharges.)
Reviewed with: Physician and Nurse
[2024-09-02] MEDS: SUBLIMAZE IV (16:20)
[2024-09-02] MEDS: LOVENOX 40 MG SC (17:12)
[2024-09-02] MEDS: LEVOPHED 250 IV (17:12)
--- NOTE | 2024-09-02 17:30 | PTCARENOTE ---
Late entry for 09/02 -
short SBT. Pt became very agitated initially with sedation off. When calm/resting, low tidal volumes. SBT stopped per MD. Leaving intubated for possible MELY.
Pt agitated at times. Started on precedex. Remains on fentanyl gtt. Propofol d/c'd.
Low dose levophed gtt started for hypotension.
All other assessments unchanged.
--- NOTE | 2024-09-02 21:30 | PTCARENOTE ---
rec'd patient. assessment as documented. restraints in place. pt arouses to verbal stimulation, becomes agitated but able to redirect. SR/SB on monitor. levo gtt infusing to maintain MAP >65. #7 ETT, 21 at lip. adjusted. vent settings: AC
18/400/04/30. lungs coarse. OGT - clamped. dempsey with temp sensing in place. precedex and fentanyl gtts infusing for sedation. CHG wipes, dempsey and oral care provided. care ongoing.
[2024-09-03] VITALS (40 sets, daily range): BP systolic 90–164; BP diastolic 54–106; PULSE 112–133; O2SAT 97–99
--- NOTE | 2024-09-03 00:09 | PTCARENOTE ---
no changes in assessment
[2024-09-03] MEDS: PRECEDEX 100 IV (01:26)
[2024-09-03] MEDS: D5/0.45%NSS with KCL 20 MEQ 1000 IV (01:26)
[2024-09-03] MEDS: SUBLIMAZE 50 MCG IV ×2 (01:54→04:22)
[2024-09-03] MEDS: SUBLIMAZE 100 IV (04:01)
[2024-09-03 04:32] LABS: Hematocrit 32.1 % (37.0-47.0); Hemoglobin 11.4 g/dL (12.0-16.0); Mean Corp Hgb Conc. 35.5 g/dL (33.0-37.0); Mean Corpuscular Hgb 31.9 pg (27.0-31.0); Mean Corpuscular Volume 89.9 fL (81.0-99.0); Mean Platelet Volume 9.4 fL (7.4-10.4); Platelet Count 240 10^3/uL (130-400); Red Blood Cell Count 3.57 10^6/uL (4.20-5.40); Red Cell Dist. Width 13.5 % (11.5-14.5); White Blood Cell Count 10.8 10^3/uL (4.8-10.8)
--- NOTE | 2024-09-03 04:37 | PTCARENOTE ---
AM labs sent. oral care and repositioning provided. ETT adjusted. levo/fent/precedex/IVF continue. care ongoing.
[2024-09-03 04:59] LABS: Blood Urea Nitrogen 7 mg/dl (7-17); Calcium 9.2 mg/dl (8.4-10.2); Carbon Dioxide 17 mmol/L (22-30); Chloride 103 mmol/L (98-107); Glucose 158 mg/dl (70-99); Magnesium 1.9 mg/dl (1.6-2.3); Potassium 3.9 mmol/L (3.5-5.1); Sodium 133 mmol/L (135-145); eGFR > 60.00
--- NOTE | 2024-09-03 07:23 | W.PN.INTV ---
Today's Communication / Plan
Recommendations
SBT with plan to extubate today
Fevers likely related to precedex, ID consult obtained/possible LP planning
Cultures pending
Continue AEDs per neuro
MELY planning tomorrow per cards 09/04
Diet advancement post extubation
Assessment
-
Patient is a 59-year-old female with previous unknown past history presenting to ER for difficulty speaking and moving left side. She was notably confused and incoherent, stroke alert was called. Upon arrival from CT scan she developed
witnessed generalized tonic-clonic seizures. She was then intubated and sedated. Initial blood pressure was notably 231/140, heart rate 130s. CT initially is negative. CT angio demonstrating no critical or hemodynamic stenosis. She is now
admitted to ICU for further management.
Acute witnessed generalized tonic-clonic seizure
s/p Intubation for airway protection
Confusion/left-sided weakness/aphasia
Hypertensive emergency 231/140
Hyponatremia, mild
Hyperglycemia
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
Chronic ETOH use history, sober last month
HTN
Plan
+ current signs of metabolic encephalopathy, possibly postictal--improved today
Had witnessed tonic-clonic seizure, placed on propofol, EEG negative
Neurology evaluation obtained
notes there is chronic alcohol history, patient has been drinking every day previously but had cut down in the past year and 1/2-1 to 2 drinks per week.
He notes that they both have gone cold turkey in the last 30 days.
She has no prior history of seizure disorder
Pain/sedation: stop sedation
RASS goals: 0
Need eventual MRI
LP planning per team
Hemodynamically stable, not requiring pressors.
Cardiac history reviewed--hypertension, not on medications
Off Cardene prolonged time spent coordinating with
ECHO reviewed indicating possible right atrial mass, discussed with cardiology
Consult placed--likely MELY tomorrow 09/04
Will obtain CTA imaging as well--reviewed, confirms mass on RA
Monitor on telemetry
Intubated for airway protection, extubate today
Prior history of lung disease: None
Supplemental O2 as indicated to maintain sats > 89%
CXR/CT reviewed indicating no acute disease
NPO, resume diet when able post extubation
Sketcher recommendations
Aspiration precautions, HOB > 30 degrees
Speech therapy eval can be considered if at elevated risk
GI prophylaxis if indicated for mechanical ventilation >48 hours, prior history of GERD, stress ulcer formation in the critically ill
Creat at baseline, no history of renal disease
Void trials
Follow urine output, critical I/Os
Replete electrolytes as needed
No signs/symptoms suspicious for infectious etiology at this time
Fevers noted overnight, but this may be due to precedex--ID consult placed
Await culture results
Would observe off antibiotics for now
Follow fever trend, WBC count
CBC stable, no signs of bleeding or coagulopathy.
DVT prophylaxis as assessed based on risk, including mechanical SCDs
Can transfuse if indicated for Hb <7, plt < 10
INR WNL
No prior h/o diabetes or thyroid disease
Monitor accuchecks PRN/SS coverage if needed
Diagnostic Data
Chest X-Ray: 09/01/24- Endotracheal tube with tip in trachea approximately 1.5 cm above the donta and nasogastric tube with tip in the stomach. No pneumothorax. Mildly elevated left hemidiaphragm with likely mild left basilar subsegmental
atelectasis.
CT Scan: HEAD 09/02/24- No acute intracranial abnormality noted. Chronic opacification of the left maxillary and frontal sinuses.
H&N 09/01/24- No findings to suggest proximal intracranial arterial stenosis or vessel cut off bilaterally.
Nonhemodynamically significant atherosclerotic changes in the carotid bulbs and proximal internal carotid arteries bilaterally.
No findings to suggest internal carotid artery or vertebral artery dissection bilaterally.
Echo: pending
PFT's:
Reports and relevant images were personally reviewed.
-----
Critical care time 45 mins -- this includes review of history, physical exam, medications, hemodynamic/ventilator parameters, laboratory data, imaging and discussion with house staff, pharmacy, respiratory therapy, research technologist, and nursing. Prolonged
time spent coordinating with cardiology, radiology and care team.
Subjective Dataa
Subjective Data
Date of Service:
Date of Service: September 03, 2024
Chief Complaint: City Constable Follow Up
Subjective:
Doing better today with MS, intubated overnight
Calm, following commands
on SBT
at bedside
Objective Data
Data Reviewed
Vital Signs / I&O / Oxygen:
Vital Signs
Temp Pulse Resp BP Pulse Ox
99.8 F 55 18 154/93 100
09/03/24 04:03 09/03/24 06:30 09/03/24 06:30 09/03/24 06:30 09/03/24 06:30
Intake and Output
09/02/24 09/03/24 09/04/24
06:59 06:59 06:59
Intake Total 115.8 / 135.1 1782.6 / 1782.6
Output Total 610 / 625 1460 / 1460
Balance -494.2 / -489.9 322.6 / 322.6
SaO2 [A/C] 100
SaO2 100
Nasal Cannula flow liters per 2
minute
Physical Exam
General: Comfortable and Other (NAD)
HEENT: Normocephalic, Anicteric and Moist Mucous Membranes
Cardiovascular: S1-S2 and Regular Rhythm
Respiratory: Clear, Non-Labored Respirations and ET Tube
GI: Soft, Non Distended, Non Tender and NG Tube
Neurology: Awake, Alert, Oriented and No Motor Deficits
Skin: Warm and Dry
Labs/Micro/Reports
Lab Data
09/03/24 04:18
09/03/24 04:18
[2024-09-03] MEDS: PHENOBARBITAL 32.5 MG IV (08:13)
[2024-09-03] MEDS: KEPPRA 1000 MG IV (08:13)
[2024-09-03] MEDS: PROTONIX IV 40 MG IV (08:13)
[2024-09-03] MEDS: MIRALAX 17 GRAMS TUBE (08:14)
--- NOTE | 2024-09-03 08:17 | W.PN.HOSP.TC ---
Today's Communication/Plan
-
see bold
Assessment / Plan
Assessment / Plan
Gen: NAD, NCAT
Neck: supple.
CV: RRR, +S1/S2, no m/r/g.
Resp: CTAB, no rales, wheezes, or rhonchi.
Abd: +BS, soft, NT, ND
Skin: No rashes.
Neuro: sedated
Psych: calm
CTA head/neck 09/01/24: No findings to suggest proximal intracranial arterial stenosis or vessel cut off bilaterally. Nonhemodynamically significant atherosclerotic changes in the carotid bulbs and proximal internal carotid arteries bilaterally. No
findings to suggest internal carotid artery or vertebral artery dissection bilaterally.
CXR 09/02/24: Stable positioning of the support lines and tubes. Minimal left basilar atelectasis, unchanged.
CT brain 09/02/24: No acute intracranial abnormality noted. Chronic opacification of the left maxillary and frontal sinuses.
EEG: This EEG is abnormal due to the presence of diffuse slowing of the background to delta to theta range frequencies but was at times normal. The study is consistent with mild to moderate diffuse cerebral dysfunction, nonspecific in etiology. An
episode of 'full body movement' had no epileptiform correlate. The study was limited at times by muscle artifact.
Echo: Technically difficult study
Small left ventricle with normal left ventricular systolic function.
Left ventricular ejection fraction estimated by Alford's method 60-65%
Mild to moderate concentric left ventricular hypertrophy
Mildly reduced right ventricle systolic function with mildly increased right
ventricular wall thickness
Normal left atrial size.
Right atrium poorly visualized.
There is a nonmobile echodensity 2.4 x 2.0 cm in the right atrium; and limited
subcostal views this may represent lipomatous hypertrophy of the intra-atrial
septum however cannot exclude a right atrial mass.
Thickened mitral valve leaflets with adequate leaflet excursion. Trace mitral
regurgitation
Trileaflet, mildly sclerotic aortic valve without stenosis or significant
regurgitation
Trace tricuspid regurgitation
Estimated pulmonary artery pressure of 27 mmHg assuming a right atrial pressure
of 3 mmHg.
Trivial-small pericardial effusion
Dilated aortic root. Sinus of Valsalva measures 4.1 cm, sinotubular junction
measures 2.8 cm, ascending aorta measures 3.1 cm. Aortic arch not well
visualized.
Interatrial septum is poorly visualized but in limited subcostal views appears
lipomatous.
No study available for comparison
Study results discussed with primary service
Consider additional evaluation with transesophageal echocardiogram or CT/MRI
Seizure activity:
-note, presented with reports of left-sided weakness and expressive aphasia. The patient was not a TNK candidate.
-was intubated for acute hypoxemic and hypercapnic respiratory failure, now on SBT
-weaning sedation
-cont Keppra
-EEG above, no seizure activity
-neuro following
-check MRI brain after extubation
-with fever check Dx LP (IR called at 0830), check BCxs. Case discussed with Dr. Jacobson and she states it's possible fever is from Precedex and therefore we will wean Precedex to off. Regardless, considering presentation and fever LP must be done.
-c/s ID
Hypertensive emergency:
-was on nicardipine gtt, now off
-allow for permissive HTN
-Echo above with concern for R atrial mass. May need MELY as per discussion with Dr. Steele on 09/02/24
Hypokalemia, resolved
Total critical care time spent = 32 min
Anticipated Discharge: > 48 hours
Subjective/Interval History
-
Date of Service: September 03, 2024
Intubated.
Objective Data
-
Labs:
Laboratory Results
09/03/24
04:18
WBC 10.8
Hgb 11.4 L
Hct 32.1 L
Plt Count 240
Sodium 133 L
Potassium 3.9
Chloride 103
Carbon Dioxide 17 L
BUN 7
Creatinine 0.7
Glucose 158 H
Calcium 9.2
Vital Signs:
Vital Signs
Temp Pulse Resp BP Pulse Ox
100.7 F H 76 10 154/93 100
09/03/24 08:13 09/03/24 08:03 09/03/24 08:03 09/03/24 06:30 09/03/24 08:03
I&O
09/02/24 09/03/24 09/04/24
06:59 06:59 06:59
Intake Total 115.8 / 135.1 1782.6 / 1782.6
Output Total 610 / 625 1460 / 1460
Balance -494.2 / -489.9 322.6 / 322.6
--- NOTE | 2024-09-03 08:39 | W.PN.CARDCBS ---
Today's Communication / Plan
-
Wean to extubate.
Once extubated will discuss plans for transesophageal echo to evaluate possible right atrial mass.
Would wait until endotracheal tube is removed before proceeding
tentative plan is for tomorrow
Impression / Plan
-
Primary Data Base Administrator: none
Assessment:
Presentation with altered mental status
Concern for acute CVA
Seizure activity
HTN emergency
Abnormality of RA by echo 09/02/24
Anemia
Hypomagnesemia
EtOH disorder
History of bulimia
ECHO 09/02/24: TDS, EF 60 to 65%, mild to moderate concentric LVH, right atrium poorly visualized but not mobile echodensity 2.4-2.0 cm in right atrium possible lymphadenitis hypertrophy of interatrial septum however cannot exclude RA mass, PAP 27
mmHg, trivial to small pericardial effusion, dilated aortic root
Plan:
-Remains on the ventilator. Hopefully can wean ventilator to extubate today.
-Right atrial mass was noticed on CT scan as well. Will proceed with MELY when extubated and I can discuss this with her when she is awake. Okay to eat today.
Likely for MELY on Saturday.
Progress Note - Data Base Administrator
Subjective
Date of Service: September 03, 2024
awake on vent. still with fevers
Objective
Labs:
09/03/24 04:18
09/03/24 04:18
Labs
Hgb 11.4 g/dL (12.0-16.0) L 09/03/24 04:18
Hct 32.1 % (37.0-47.0) L 09/03/24 04:18
Plt Count 240 10^3/uL (130-400) 09/03/24 04:18
PT 14.3 Sec (11.4-14.6) 09/02/24 03:24
INR 1.12 09/02/24 03:24
APTT 23.8 Sec (23.4-35.0) 09/02/24 03:24
Sodium 133 mmol/L (135-145) L 09/03/24 04:18
Potassium 3.9 mmol/L (3.5-5.1) 09/03/24 04:18
BUN 7 mg/dl (7-17) 09/03/24 04:18
Creatinine 0.7 mg/dL (0.6-1.0) 09/03/24 04:18
Glucose 158 mg/dl (70-99) H 09/03/24 04:18
Troponins
09/01/24
18:46
Troponin I < 0.012
Vital Signs and I&O:
Vital Signs
Temp Pulse Resp BP Pulse Ox
100.7 F H 76 10 154/93 100
09/03/24 08:13 09/03/24 08:03 09/03/24 08:03 09/03/24 06:30 09/03/24 08:03
Vital Signs
Temp Pulse Resp BP Pulse Ox
100.7 F H 76 10 154/93 100
09/03/24 08:13 09/03/24 08:03 09/03/24 08:03 09/03/24 06:30 09/03/24 08:03
Intake & Output
09/01/24 09/02/24 09/03/24 09/04/24
06:59 06:59 06:59 06:59
Intake Total 115.8 / 135.1 1782.6 / 1782.6
Output Total 610 / 625 1460 / 1460
Balance -494.2 / -489.9 322.6 / 322.6
Physical Exam
Physical Exam
GEN: No distress, awake
HEENT: supple, anicteric, mmm, ET tube
LUNGS: CTA, no wheezes/rales
CV: Reg, S1/S2, no murmur
ABD: soft, BS+, NT/ND
EXT: No edema
NEURO: Gross non-focal
SKIN: No rash
--- NOTE | 2024-09-03 09:30 | PTCARENOTE ---
Received pt awake and alert.Communicating appropriately by mouthing words and writing.+5/5 JAMISON.Denies pain at this time.SR noted.Levophed weaned off.IVF.Precedex and Fentanyl gtts infusing.Temp 101.6 #7 ETT to vent.Coarse breath sounds
throughout.Suctioned for moderate amount thick miranda secretions.POX 100%SBT initiated at 0757.[place] intact.No BM.Causey draining kem urine.Plan of care discussed with pt.
--- NOTE | 2024-09-03 10:08 | W.PN.NEURO.1 ---
Today's Communication / Plan
-
Continue Keppra 1000mg BID
Weaning to extubate shortly
MELY for atrial mass
Neuro Assessment/Plan
Assessment
59-year-old lady with history of uncontrolled hypertension who had been admitted with left-sided weakness and seizures. Following intubation she was placed on Nicardipine drip, Keppra and propofol and has had no further seizures. EEG showed
diffuse slowing of the background frequencies without epileptiform discharges
Plan
1. Blood pressure management
2. Keppra 1000 mg twice a day
3. Taper propofol and extubate
Subjective/Objective
Subjective Data
Date of Service: September 03, 2024
Patient is doing well, but intubated. She is awake alert oriented to person and place. Able to follow commands.
Objective Data
Vital Signs
Temp Pulse Resp BP Pulse Ox
38.2 C H 86 13 90/58 100
09/03/24 08:13 09/03/24 09:00 09/03/24 09:00 09/03/24 09:00 09/03/24 09:00
Lab Results
09/03/24 04:18
09/03/24 04:18
PT 14.3 Sec (11.4-14.6) 09/02/24 03:24
INR 1.12 09/02/24 03:24
APTT 23.8 Sec (23.4-35.0) 09/02/24 03:24
Sodium 133 mmol/L (135-145) L 09/03/24 04:18
Potassium 3.9 mmol/L (3.5-5.1) 09/03/24 04:18
BUN 7 mg/dl (7-17) 09/03/24 04:18
Glucose 158 mg/dl (70-99) H 09/03/24 04:18
Calcium 9.2 mg/dl (8.4-10.2) 09/03/24 04:18
Phosphorus 2.9 mg/dl (2.5-4.5) 09/02/24 11:06
LDL Cholesterol, Calc 171 mg/dl 09/02/24 03:24
Ur Buprenorphine Cancelled 09/01/24 22:14
Patient Allergies
No Known Allergies Allergy (Verified 09/01/24 19:14)
Physical Exam
-
General: Well Developed, Well Nourished, No Apparent Distress and Intubated
Eyes: Able to visualize OU, Unremarkable and Round OU
HEENT: Normocephalic and Atraumatic
Neck: Full Range of Motion
Skin: Unremarkable and Warm
Extremities: No Clubbing, No Cyanosis and No Edema
Psych: Unable to Assess
Extended Neurological Exam
Mood & Affect: Unable to Assess
Attention Span & Concentration: Awake, Alert, Interactive and No Difficulty with 2 Step Request
Memory: Unable to Assess
Tremor: Hand Tremor Absent and Head Tremor Absent
Involuntary Movement: None
Speech: Unable to Assess (Intubated on Ventilator)
Cranial Nerve II: Left Eye: Pupillary Reactivity Unremarkable, Pupillary Size Unremarkable and Visual [place] Grossly Intact
Cranial Nerve II: Right Eye: Pupillary Reactivity Unremarkable, Pupillary Size Unremarkable and Visual [place] Grossly Intact
Cranial Nerves III, IV, : Extraocular Movement: Extraocular Movement Full in all Directions
Cranial Nerve V: Facial Sensation: Intact to Light Touch
Cranial Nerve VII: Facial Symmetry: Normal Facial Symmetry
Cranial Nerve VIII: Hearing: Unremarkable Hearing to Normal Conversational Volume
Cranial Nerves IX, X: Palate Movement: Palate Elevation Symmetric
Cranial Nerve XI: Shoulder Shrug: Unremarkable
Cranial Nerve XII: Tongue Protusion: Midline
Muscle Strength, Overall: Full Throughout
Muscle Bulk & Tone: Bulk Unremarkable and Tone Unremarkable
Pronator Drift: No Drift in Upper Extremities and No Drift in Lower Extremities
Deep Tendon Reflexes: Trace Throughout
Cold Sensation: Unremarkable
Vibration Sensation: Unremarkable
Touch Sensation: Unremarkable
Coordination: Qycedu-fcur-eyzhxr Testing Unremarkable and Reaches for Objects without Difficulty
Babinski Sign: Absent Bilaterally
Gait & Station: Unable to Assess
Data Reviewed
-
EEG: Report Reviewed (Mild slowing)
--- NOTE | 2024-09-03 11:13 | W.PN.UPDATE ---
Update Note
Progress Note Update
Case discussed with Dr. Salmeron over the phone just now. Pt now extubated and not encephalopathic. He does not feel that LP is needed urgently. For now we can monitor the patient's fever curve and neurological symptoms. Will hold on LP at this
time.
--- NOTE | 2024-09-03 11:43 | CON.ID ---
Consultation
-
Date/Time Consultation Requested: 09/03/2024 0832
Date/Time Consultation Performed: 09/03/2024 1144
Requesting Provider: Dr. Najera
Performing Provider: Dr. Salmeron
Reason for Consultation: Seizure; fever
Chief Complaint / Past History
History of Present Illness
Clara Michelle is a 59-year-old female being evaluated at the request of Dr. Najera in regards to seizures and fever. History is obtained from chart review, along with patient interview. Additionally, history was obtained from the patient's
who is at the bedside.
The patient is without significant past medical history, and was in her usual state of health until the evening of 09/01 when she was noted to have difficulty speaking, along with left-sided weakness. Her states that she he noted some
staggering gait, along with a left lateral gaze and left head rotation. When symptoms did not return to normal after 3 to 5 minutes he called 911 and she was brought to the emergency room. While in the ER, she was noted to have a tonic-clonic
seizure and she was intubated for airway protection. Ultimately she was admitted to the ICU. She was placed on Precedex. Since admission she has had several fevers, and Infectious disease is asked to comment upon necessity for antibiotic therapy.
At this point in time she has been extubated. She notes no recent fevers or chills. She currently denies any headache. She denies any neck pain or stiffness. Her reports that cognitively she is back to baseline. There has been no recent
travel. There are no pets in the house. No history of tick bites. No horse exposure.
Additional history is that the reports that approximately 1 year ago she had a similar episode, which only lasted about 2 to 3 minutes and thereafter she returned to normal. No workup was performed at that time.
Past History
Past Medical History: None
Past Surgical History: None
Allergy History:
No Known Allergies Allergy (Verified 09/01/24 19:14)
Medications Reviewed: Yes
Current Antibiotics:
None
Social History
Tobacco: Non-Smoker
Alcohol: Daily (~3 glasses wine/day. Reciently cut down/quit)
Drug: None
Personal:
Living: With Family
Employment: Other (Recently laid off)
Family History
Family History: Not Pertinent
Review of Systems
Vital Signs
Temp Pulse Resp BP Pulse Ox
101.2 F H 86 13 90/58 100
09/03/24 11:24 09/03/24 09:00 09/03/24 09:00 09/03/24 09:00 09/03/24 10:15
Physical Exam
Physical Exam
Constitutional: No Acute Distress, Comfortable and Non-toxic
Head: Normocephalic
Eyes: Pupils Equal, Pupils Round, No Conjunctival Hemorrhage, Sclera Anicteric and Other (EOMI)
Pharynx: Benign
Oral: No Thrush and No Ulcers
Cardiovascular: Regular Rate and S1/S2; Negative S3/S4
Pulmonary: Clear; Negative Wheezes, Rales or Rhonchi
Gastrointestinal: Soft, Non Tender, Non Distended and Normal Bowel Sounds
Extremities: Negative Edema, Cyanosis, Erythema, Splinter Hemorrhage or [place] Lesions
Skin: Warm and Dry; Negative Rash or Jaundice
Neurological: Awake and Alert
Psychological: Calm
.
Lab / Diagnostic Study Results
09/03/24 04:18
09/03/24 04:18
Abs Immat Gran (auto) 0.0 10^3/uL (0-0.05) 09/01/24 18:46
Absolute Neuts (auto) 5.9 10^3/uL (1.4-6.5) 09/01/24 18:46
Absolute Lymphs (auto) 1.9 10^3/uL (1.2-3.4) 09/01/24 18:46
Absolute Monos (auto) 0.5 10^3/uL (0.1-0.6) 09/01/24 18:46
Absolute Basos (auto) 0.1 10^3/uL (0-0.2) 09/01/24 18:46
Immature Gran % 0.5 % (0-0.5) 09/01/24 18:46
Neutrophils % 69.4 % (42.2-75.2) 09/01/24 18:46
Lymphocytes % 22.5 % (20.5-51.1) 09/01/24 18:46
Monocytes % 6.2 % (1.7-9.3) 09/01/24 18:46
Eosinophils % 0.8 % (0-6) 09/01/24 18:46
Basophils % 0.6 % (0-2) 09/01/24 18:46
PT 14.3 Sec (11.4-14.6) 09/02/24 03:24
INR 1.12 09/02/24 03:24
Microbiology Results
Imaging:
09/02/2024 CT angio (chest): Markedly heterogeneous contrast-enhancement of the right atrium. Right atrial thrombus not confirmed, but cannot be excluded. ET tube with tip in trachea above the donta. Bibasilar subsegmental atelectasis. No
pneumothorax noted.
09/02/2024 CT head without contrast: No acute intracranial abnormality noted. There is mild subcortical, deep and periventricular white matter low-attenuation compatible with changes of chronic small vessel ischemic disease. Ventricles are normal
size and configuration and position. Please see full dictation for additional detail.
09/02/2024 CXR (portable): Stable positioning of the support lines and tubes. Minimal left basilar atelectasis noted which is unchanged from prior exam.
Assessment / Plan
New onset seizure
Fevers
-suspect 2* Precedex
Suspected atrial mass versus thrombus; workup ongoing
HTN emergency
Anemia
Recommendations:
At present, no evidence of infectious process. Patient specifically without meningismus, and no evidence of encephalopathy.
Can hold on LP for the present.
No need for antimicrobials at present.
Follow temperature curve, along with white count.
Continue with supportive measures.
Will continue to follow.
Care Review
Plan reviewed with: Physician (Hospitalist)
--- NOTE | 2024-09-03 11:52 | PTCARENOTE ---
1020-Pt extubated as per MD order.[place] NGT discontinued as per MD order.Restraints removed.Voice is hoarse but appropriate.Pt's at bedside.
Oral temperature 98.4.MD made aware.
--- NOTE | 2024-09-03 12:35 | PTCARENOTE ---
Pt assessed.Pt is awake,alert.Speech is appropriate.Denies pain.+5/5 JAMISON.POX 100% on RA.Lunch ordered.Causey discontinued at 1200.DTV at 1800.
[2024-09-03] MEDS: VITAMIN B1 100 MG PO ×2 (13:20→20:10)
[2024-09-03] MEDS: MAG-TAB SR 84 MG PO (13:20)
[2024-09-03] MEDS: ANESTHETIC LOZENGE 1 LOZENGE PO ×2 (13:23→16:55)
--- NOTE | 2024-09-03 14:40 | PTCARENOTE ---
Pt assisted OOB to chair with PT/OT.Requested and received lozenge for c/o sore throat.
--- NOTE | 2024-09-03 15:23 | PTCARENOTE ---
Heart rate sustained 102-140.BP 132/98.Dr Walters made aware.
--- NOTE | 2024-09-03 15:57 | CM ---
CM following re: discharge planning.
Reviewed pt's chart, met with pt and pt's at bedside.
PT successfully extubated this morning, continue supportive care.
PT and OT evaluations noted - no recommendations have been made so far. Awaiting for updated PT/OT notes
D/C plan: uncertain at this time. Will follow up with PT/OT recommendations.
CM will follow with discharge plan updates as hospitalization progresses.
--- NOTE | 2024-09-03 16:18 | PTCARENOTE ---
Pt assessed.No change in assessment noted.Pt sitting oob in recliner chair comfortably.Pt's at bedside.
[2024-09-03] MEDS: D5/0.45%NSS with KCL 20 MEQ IV (16:25)
[2024-09-03] MEDS: LUMINAL 32.4 MG PO ×2 (16:55→20:10)
[2024-09-03] MEDS: LOVENOX 40 MG SC (16:55)
[2024-09-03 17:44] LABS: Triglycerides 170 mg/dl (10-149)
[2024-09-03] MEDS: KEPPRA 1000 MG PO (20:10)
--- NOTE | 2024-09-03 20:30 | PTCARENOTE ---
rec'd patient. assessment as documented. OOB in chair, supervision to BR and then back to bed. oriented x3. denies pain. c/o sore throat only from intubation. SR/ST on monitor. afebrile. on RA, lungs coarse, pt with productive cough. call ramirez
within reach, care ongoing.
[2024-09-04] VITALS (13 sets, daily range): BP systolic 103–153; BP diastolic 70–101
--- NOTE | 2024-09-04 | PTCARENOTE ---
no changes in assessment. pt using call ramirez to get oob and go to BR throughout night
[2024-09-04 04:41] LABS: Hematocrit 33.4 % (37.0-47.0); Hemoglobin 11.5 g/dL (12.0-16.0); Mean Corp Hgb Conc. 34.4 g/dL (33.0-37.0); Mean Corpuscular Hgb 31.7 pg (27.0-31.0); Mean Platelet Volume 9.4 fL (7.4-10.4); Platelet Count 294 10^3/uL (130-400); Red Blood Cell Count 3.63 10^6/uL (4.20-5.40); Red Cell Dist. Width 13.5 % (11.5-14.5); White Blood Cell Count 9.7 10^3/uL (4.8-10.8)
[2024-09-04 04:51] LABS: Blood Urea Nitrogen 5 mg/dl (7-17); Calcium 9.9 mg/dl (8.4-10.2); Carbon Dioxide 20 mmol/L (22-30); Chloride 102 mmol/L (98-107); Glucose 104 mg/dl (70-99); Magnesium 1.9 mg/dl (1.6-2.3); Potassium 3.9 mmol/L (3.5-5.1); Sodium 137 mmol/L (135-145); Triglycerides 96 mg/dl (10-149); eGFR > 60.00
--- NOTE | 2024-09-04 05:33 | PTCARENOTE ---
AM labs sent. no changes in assessment. call ramirez within reach, care ongoing.
--- NOTE | 2024-09-04 07:18 | W.PN.INTV ---
Today's Communication / Plan
Recommendations
Post extubation, stable on RA
MELY this AM, results pending
Fevers appear resolved, likely from precedex, ID following
PT/OT
Further neurologic w/u for seizure ongoing
Transfer to floors, we will sign off upon transfer
Assessment
-
Patient is a 59-year-old female with previous unknown past history presenting to ER for difficulty speaking and moving left side. She was notably confused and incoherent, stroke alert was called. Upon arrival from CT scan she developed
witnessed generalized tonic-clonic seizures. She was then intubated and sedated. Initial blood pressure was notably 231/140, heart rate 130s. CT initially is negative. CT angio demonstrating no critical or hemodynamic stenosis. She is now
admitted to ICU for further management.
Acute witnessed generalized tonic-clonic seizure
s/p Intubation for airway protection, extubated 09/03/24
Confusion/left-sided weakness/aphasia
Hypertensive emergency 231/140
Hyponatremia, mild
Hyperglycemia
Fevers, likely from precedex
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
Chronic ETOH use history, sober last month
HTN
Plan
+ current signs of metabolic encephalopathy, possibly postictal--improved today
Had witnessed tonic-clonic seizure, placed on propofol, EEG negative
Neurology evaluation obtained
notes there is chronic alcohol history, patient has been drinking every day previously but had cut down in the past year and 1/2-1 to 2 drinks per week.
He notes that they both have gone cold turkey in the last 30 days.
She has no prior history of seizure disorder
Pain/sedation: stop sedation
RASS goals: 0
Need eventual MRI
Hemodynamically stable, not requiring pressors.
Cardiac history reviewed--hypertension, not on medications
Off Cardene prolonged time spent coordinating with
ECHO reviewed indicating possible right atrial mass, discussed with cardiology
Consult placed--likely MELY tomorrow 09/04--pending report
CTA imagingl--reviewed, confirms mass on RA
Monitor on telemetry
Currently stable on RA
Intubated for airway protection, extubated 09/03
Prior history of lung disease: None
Supplemental O2 as indicated to maintain sats > 89%
CXR/CT reviewed indicating no acute disease
Diet advanced/tolerating
Reducing Salon Attendant recommendations
Aspiration precautions, HOB > 30 degrees
Speech therapy eval can be considered if at elevated risk
GI prophylaxis if indicated for mechanical ventilation >48 hours, prior history of GERD, stress ulcer formation in the critically ill
Creat at baseline, no history of renal disease
Void trials
Follow urine output, critical I/Os
Replete electrolytes as needed
No signs/symptoms suspicious for infectious etiology at this time
Fevers noted overnight, but this may be due to precedex--ID consult placed
Await culture results
Would observe off antibiotics for now
Follow fever trend, WBC count
CBC stable, no signs of bleeding or coagulopathy.
DVT prophylaxis as assessed based on risk, including mechanical SCDs
Can transfuse if indicated for Hb <7, plt < 10
INR WNL
No prior h/o diabetes or thyroid disease
Monitor accuchecks PRN/SS coverage if needed
Diagnostic Data
Chest X-Ray: 09/01/24- Endotracheal tube with tip in trachea approximately 1.5 cm above the donta and nasogastric tube with tip in the stomach. No pneumothorax. Mildly elevated left hemidiaphragm with likely mild left basilar subsegmental
atelectasis.
CT Scan: HEAD 09/02/24- No acute intracranial abnormality noted. Chronic opacification of the left maxillary and frontal sinuses.
H&N 09/01/24- No findings to suggest proximal intracranial arterial stenosis or vessel cut off bilaterally.
Nonhemodynamically significant atherosclerotic changes in the carotid bulbs and proximal internal carotid arteries bilaterally.
No findings to suggest internal carotid artery or vertebral artery dissection bilaterally.
Echo: pending
PFT's:
Reports and relevant images were personally reviewed.
-----
Critical care time 35 mins -- this includes review of history, physical exam, medications, hemodynamic/ventilator parameters, laboratory data, imaging and discussion with house staff, pharmacy, respiratory therapy, milliner helper, and nursing. Prolonged
time spent coordinating with cardiology, radiology and care team.
Subjective Dataa
Subjective Data
Date of Service:
Date of Service: September 04, 2024
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
Subjective:
Doing well today, stable overnight post extubation
MELY this AM
No new complaints
Currently on RA
Objective Data
Data Reviewed
Vital Signs / I&O / Oxygen:
Vital Signs
Temp Pulse Resp BP Pulse Ox
98.8 F 79 13 125/89 99
09/04/24 05:02 09/04/24 06:00 09/04/24 06:00 09/04/24 05:47 09/04/24 00:00
Intake and Output
09/03/24 09/04/24 09/05/24
06:59 06:59 06:59
Intake Total 1782.6 / 1873.2 1229.9 / 1229.9
Output Total 1460 / 1570 590 / 590
Balance 322.6 / 303.2 639.9 / 639.9
SaO2 [A/C] 30
SaO2 99
Nasal Cannula flow liters per 2
minute
Physical Exam
General: Comfortable and Other (NAD)
HEENT: Normocephalic, Anicteric and Moist Mucous Membranes
Cardiovascular: S1-S2 and Regular Rhythm
Respiratory: Clear and Non-Labored Respirations
GI: Soft, Non Distended, Non Tender and NG Tube
Neurology: Awake, Alert, Oriented and No Motor Deficits
Skin: Warm and Dry
Labs/Micro/Reports
Lab Data
09/04/24 04:07
09/04/24 04:07
[2024-09-04] MEDS: VITAMIN B1 100 MG PO ×2 (07:37→20:59)
[2024-09-04] MEDS: LUMINAL 32.4 MG PO (07:37)
[2024-09-04] MEDS: MAG-TAB SR 84 MG PO (07:37)
[2024-09-04] MEDS: KEPPRA 1000 MG PO ×2 (07:37→20:59)
[2024-09-04] MEDS: ANESTHETIC LOZENGE 1 LOZENGE PO (07:48)
--- NOTE | 2024-09-04 07:51 | PTCARENOTE ---
Addendum entered by Akiko Hernandez RN 09/04/24 09:15:
phone report to film laboratory technician, transfer to film laboratory technician@[phone]
Original Note:
report received, assessments per work list. patient emotional, tearful and anxious about pending MELY today. support given. neuro intact, monitor nsr, lungs clear. assisted to bathroom to void, urine yellow. c/o sore throat. see MAR. abdomen soft.
call ramirez in reach. reviewed plan of care
--- NOTE | 2024-09-04 09:35 | W.PN.CARDCBS ---
Today's Communication / Plan
-
Transesophageal echo with lipomatous hypertrophy of septum consistent with normal variant. There is no evidence of significant right atrial mass.
Continue treatments for seizures.
Will sign off. Call with questions
Impression / Plan
-
Primary Processing Assistant: none
Assessment:
Presentation with altered mental status
Concern for acute CVA
Seizure activity
HTN emergency
Abnormality of RA by echo 09/02/24 - Lipomatous hypertrophy of septum
Anemia
Hypomagnesemia
EtOH disorder
History of bulimia
ECHO 09/02/24: TDS, EF 60 to 65%, mild to moderate concentric LVH, right atrium poorly visualized but not mobile echodensity 2.4-2.0 cm in right atrium possible lymphadenitis hypertrophy of interatrial septum however cannot exclude RA mass, PAP 27
mmHg, trivial to small pericardial effusion, dilated aortic root
MELY 09/04/24: EF 65%, mild-mod AI, Lipomatous hypertrophy of intraatrial septum (normal variant)
Plan:
Transesophageal echo reveals lipomatous hypertrophy of interatrial septum. This is a normal variant and not consistent with a right atrial mass or significant pathology.
Continue current medical care. Cont seizure meds
Will sign off.
Call with questions.
Progress Note - Processing Assistant
Subjective
Date of Service: September 04, 2024
no chest pains/sob
Objective
Labs:
09/04/24 04:07
09/04/24 04:07
Labs
Hgb 11.5 g/dL (12.0-16.0) L 09/04/24 04:07
Hct 33.4 % (37.0-47.0) L 09/04/24 04:07
Plt Count 294 10^3/uL (130-400) D 09/04/24 04:07
PT 14.3 Sec (11.4-14.6) 09/02/24 03:24
INR 1.12 09/02/24 03:24
APTT 23.8 Sec (23.4-35.0) 09/02/24 03:24
Sodium 137 mmol/L (135-145) 09/04/24 04:07
Potassium 3.9 mmol/L (3.5-5.1) 09/04/24 04:07
BUN 5 mg/dl (7-17) L 09/04/24 04:07
Creatinine 0.7 mg/dL (0.6-1.0) 09/04/24 04:07
Glucose 104 mg/dl (70-99) H 09/04/24 04:07
Troponins
09/01/24
18:46
Troponin I < 0.012
Vital Signs and I&O:
Vital Signs
Temp Pulse Resp BP Pulse Ox
99.2 F 82 20 146/100 100
09/04/24 07:25 09/04/24 08:10 09/04/24 08:10 09/04/24 08:10 09/04/24 08:00
Vital Signs
Temp Pulse Resp BP Pulse Ox
99.2 F 82 20 146/100 100
09/04/24 07:25 09/04/24 08:10 09/04/24 08:10 09/04/24 08:10 09/04/24 08:00
Intake & Output
09/02/24 09/03/24 09/04/24 09/05/24
06:59 06:59 06:59 06:59
Intake Total 115.8 / 135.1 1782.6 / 1873.2 1229.9 / 1229.9 240 / 240
Output Total 610 / 625 1460 / 1570 590 / 590
Balance -494.2 / -489.9 322.6 / 303.2 639.9 / 639.9 240 / 240
Physical Exam
Physical Exam
GEN: No distress, awake, Ox3
HEENT: supple, anicteric, mmm
LUNGS: CTA, no wheezes/rales
CV: Reg, S1/S2, 1/6 syst LSB, no gallop
ABD: soft, BS+, NT/ND
EXT: No edema
NEURO: Gross non-focal
SKIN: No rash
--- NOTE | 2024-09-04 09:41 | W.PN.HOSP.TC ---
Today's Communication/Plan
-
see bold
Assessment / Plan
Assessment / Plan
Gen: NAD, NCAT
Neck: supple.
CV: RRR, +S1/S2, no m/r/g.
Resp: CTAB, no rales, wheezes, or rhonchi.
Abd: +BS, soft, NT, ND
Skin: No rashes.
Neuro: sedated
Psych: calm
CTA head/neck 09/01/24: No findings to suggest proximal intracranial arterial stenosis or vessel cut off bilaterally. Nonhemodynamically significant atherosclerotic changes in the carotid bulbs and proximal internal carotid arteries bilaterally. No
findings to suggest internal carotid artery or vertebral artery dissection bilaterally.
CXR 09/02/24: Stable positioning of the support lines and tubes. Minimal left basilar atelectasis, unchanged.
CT brain 09/02/24: No acute intracranial abnormality noted. Chronic opacification of the left maxillary and frontal sinuses.
EEG: This EEG is abnormal due to the presence of diffuse slowing of the background to delta to theta range frequencies but was at times normal. The study is consistent with mild to moderate diffuse cerebral dysfunction, nonspecific in etiology. An
episode of 'full body movement' had no epileptiform correlate. The study was limited at times by muscle artifact.
Echo: Technically difficult study
Small left ventricle with normal left ventricular systolic function.
Left ventricular ejection fraction estimated by Alford's method 60-65%
Mild to moderate concentric left ventricular hypertrophy
Mildly reduced right ventricle systolic function with mildly increased right
ventricular wall thickness
Normal left atrial size.
Right atrium poorly visualized.
There is a nonmobile echodensity 2.4 x 2.0 cm in the right atrium; and limited
subcostal views this may represent lipomatous hypertrophy of the intra-atrial
septum however cannot exclude a right atrial mass.
Thickened mitral valve leaflets with adequate leaflet excursion. Trace mitral
regurgitation
Trileaflet, mildly sclerotic aortic valve without stenosis or significant
regurgitation
Trace tricuspid regurgitation
Estimated pulmonary artery pressure of 27 mmHg assuming a right atrial pressure
of 3 mmHg.
Trivial-small pericardial effusion
Dilated aortic root. Sinus of Valsalva measures 4.1 cm, sinotubular junction
measures 2.8 cm, ascending aorta measures 3.1 cm. Aortic arch not well
visualized.
Interatrial septum is poorly visualized but in limited subcostal views appears
lipomatous.
No study available for comparison
Study results discussed with primary service
Consider additional evaluation with transesophageal echocardiogram or CT/MRI
Seizure activity:
-note, presented with reports of left-sided weakness and expressive aphasia. The patient was not a TNK candidate.
-was intubated for acute hypoxemic and hypercapnic respiratory failure, extubated 09/03/24
-cont Keppra
-EEG above, no seizure activity
-neuro following
-check MRI brain without contrast (as per discussion with Dr. Woods)
-was febrile, now fever has resolved (coincides with Precedex being stopped)
-ID saw in c/s on 09/03/24. I spoke to Dr. Salmeron at the time and he felt LP was not needed (nor empiric abx). As per ID today, no evidence of infection and no abx are needed.
-follow BCxs
-no leukocytosis
Hypertensive emergency:
-was on nicardipine gtt, now off
-allow for permissive HTN
-Echo above with concern for R atrial mass. No MELY at this time as per cardiology
Other problems:
Note, MELY with lipomatous hypertrophy of septum consistent with normal variant. No evidence of significant right atrial mass.
Hypokalemia, resolved
updated at bedside.
RN updated
Total time spent on today's encounter was 50 minutes which included time spent in counseling the patient/family regarding diagnosis and treatment plan as listed above, goals of care, and symptom management. Case was discussed with nursing staff,
specialists, and care coordinators/case management. All labs and imaging personally reviewed by me. Remainder the time spent in detailed review of previous records, lab data, imaging, and other medical provider documentation.
Anticipated Discharge: Within 24 hours
Subjective/Interval History
-
Date of Service: September 04, 2024
No new complaints.
Objective Data
-
Labs:
Laboratory Results
09/04/24
04:07
WBC 9.7
Hgb 11.5 L
Hct 33.4 L
Plt Count 294 D
Sodium 137
Potassium 3.9
Chloride 102
Carbon Dioxide 20 L
BUN 5 L
Creatinine 0.7
Glucose 104 H
Calcium 9.9
Vital Signs:
Vital Signs
Temp Pulse Resp BP Pulse Ox
99.2 F 82 20 146/100 100
09/04/24 07:25 09/04/24 08:10 09/04/24 08:10 09/04/24 08:10 09/04/24 08:00
I&O
09/03/24 09/04/24 09/05/24
06:59 06:59 06:59
Intake Total 1782.6 / 1873.2 1229.9 / 1229.9 240 / 240
Output Total 1460 / 1570 590 / 590
Balance 322.6 / 303.2 639.9 / 639.9 240 / 240
--- NOTE | 2024-09-04 10:28 | PTCARENOTE ---
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 no changes in assessments. refusing breakfas or oral care
--- NOTE | 2024-09-04 11:33 | W.PN.ID1 ---
Date of Service
Date of Service: September 04, 2024
Today's Communication
Follow off antibiotics.
Assessment / Plan
New onset seizure
Fevers
- suspect 2* Precedex
- Temp curve overall improved.
Suspected atrial mass versus thrombus; workup ongoing
HTN emergency
Anemia
Recommendations:
Temp curve overall improved.
At present, no evidence of infectious process. Patient specifically without meningismus, and no evidence of encephalopathy.
Little more to offer from a Infectious Disease standpoint.
Will follow along with you peripherally.
Chief Complaint
-: Fever
Subjective / Review of Systems
Patient seen and examined. Reports overall feels well. No fevers or chills. No neck pain or stiffness. Still has a sore throat, likely secondary to recent intubation.
Vital Signs / Physical Exam
Vital Signs
Vital Signs
Temp Pulse Resp BP Pulse Ox
98.7 F 82 20 146/100 100
09/04/24 10:47 09/04/24 08:10 09/04/24 08:10 09/04/24 08:10 09/04/24 08:00
Physical Exam
Constitutional: No Acute Distress, Comfortable and Non-toxic
Eyes: Sclera Anicteric
Cardiovascular: S1/S2; Negative S3/S4
Pulmonary: Clear and Non Labored
Gastrointestinal: Soft, Non Tender and Non Distended
Neurological: Awake and Alert; Negative Meningeal Signs
Objective Data
Lab Data
Lab Results
09/04/24 04:07
09/04/24 04:07
PT 14.3 Sec (11.4-14.6) 09/02/24 03:24
INR 1.12 09/02/24 03:24
APTT 23.8 Sec (23.4-35.0) 09/02/24 03:24
Total Bilirubin 0.5 mg/dl (0.2-1.3) 09/01/24 18:46
AST 30 U/L (14-36) 09/01/24 18:46
ALT 21 U/L (0-35) 09/01/24 18:46
Alkaline Phosphatase 68 U/L (38-126) 09/01/24 18:46
Most recent labs reviewed.
CT Scan: Image Reviewed
Micro Results:
09/03/24 11:56 Blood Culture - Pending
Blood/Venous
09/03/24 14:08 Blood Culture - Pending
Blood/Venous
Imaging:
09/02/2024 CT angio (chest): Markedly heterogeneous contrast-enhancement of the right atrium. Right atrial thrombus not confirmed, but cannot be excluded. ET tube with tip in trachea above the donta. Bibasilar subsegmental atelectasis. No
pneumothorax noted.
09/02/2024 CT head without contrast: No acute intracranial abnormality noted. There is mild subcortical, deep and periventricular white matter low-attenuation compatible with changes of chronic small vessel ischemic disease. Ventricles are normal
size and configuration and position. Please see full dictation for additional detail.
09/02/2024 CXR (portable): Stable positioning of the support lines and tubes. Minimal left basilar atelectasis noted which is unchanged from prior exam.
--- NOTE | 2024-09-04 13:23 | PTOTSP ---
Dysphagia Evaluation
Suspect oral and pharyngeal stages of swallowing are grossly WFL to continue regular, thin liquid diet at this time.
Speech/language evaluation held. Patient conversing at the conversation level without difficulty. CT Head negative for acute stroke. MRI of Brain pending. Consider higher level evaluation pending these results.
Recommend:
1. Regular, thin liquids
2. Medications - as best tolerated
3. Speech/language/cognitive evaluation pending results of MRI of Brain
--- NOTE | 2024-09-04 14:47 | PTCARENOTE ---
Patient transferred from the ICU into room 411-02. Vital signs stable. Patient without complaint. at bedside. Reviewed use of call ramirez and television and bed controls. Patient verbalizes understanding of teaching and denies questions.
Resting comfortably in bed at this time.
[2024-09-04] MEDS: LOVENOX 40 MG SC (17:47)
[2024-09-05 07:45] VITALS: BP 125/88
[2024-09-05] MEDS: KEPPRA 1000 MG PO (08:59)
[2024-09-05] MEDS: MAG-TAB SR 84 MG PO (08:59)
[2024-09-05] MEDS: VITAMIN B1 100 MG PO (08:59)
[2024-09-05] MEDS: ANESTHETIC LOZENGE 1 LOZENGE PO (09:09)
--- NOTE | 2024-09-05 10:04 | W.PN.HOSP.TC ---
Today's Communication/Plan
-
d/c
Assessment / Plan
Assessment / Plan
Gen: NAD, NCAT
Neck: supple.
CV: remains RRR, +S1/S2, no m/r/g.
Resp: remains CTAB, no rales, wheezes, or rhonchi.
Abd: +BS, soft, NT, ND
Skin: No rashes.
Neuro: CN2-12 intact, non-focal
Psych: appears slightly anxious
CTA head/neck 09/01/24: No findings to suggest proximal intracranial arterial stenosis or vessel cut off bilaterally. Nonhemodynamically significant atherosclerotic changes in the carotid bulbs and proximal internal carotid arteries bilaterally. No
findings to suggest internal carotid artery or vertebral artery dissection bilaterally.
CXR 09/02/24: Stable positioning of the support lines and tubes. Minimal left basilar atelectasis, unchanged.
CT brain 09/02/24: No acute intracranial abnormality noted. Chronic opacification of the left maxillary and frontal sinuses.
EEG: This EEG is abnormal due to the presence of diffuse slowing of the background to delta to theta range frequencies but was at times normal. The study is consistent with mild to moderate diffuse cerebral dysfunction, nonspecific in etiology. An
episode of 'full body movement' had no epileptiform correlate. The study was limited at times by muscle artifact.
Echo: Technically difficult study
Small left ventricle with normal left ventricular systolic function.
Left ventricular ejection fraction estimated by Alford's method 60-65%
Mild to moderate concentric left ventricular hypertrophy
Mildly reduced right ventricle systolic function with mildly increased right
ventricular wall thickness
Normal left atrial size.
Right atrium poorly visualized.
There is a nonmobile echodensity 2.4 x 2.0 cm in the right atrium; and limited
subcostal views this may represent lipomatous hypertrophy of the intra-atrial
septum however cannot exclude a right atrial mass.
Thickened mitral valve leaflets with adequate leaflet excursion. Trace mitral
regurgitation
Trileaflet, mildly sclerotic aortic valve without stenosis or significant
regurgitation
Trace tricuspid regurgitation
Estimated pulmonary artery pressure of 27 mmHg assuming a right atrial pressure
of 3 mmHg.
Trivial-small pericardial effusion
Dilated aortic root. Sinus of Valsalva measures 4.1 cm, sinotubular junction
measures 2.8 cm, ascending aorta measures 3.1 cm. Aortic arch not well
visualized.
Interatrial septum is poorly visualized but in limited subcostal views appears
lipomatous.
No study available for comparison
Study results discussed with primary service
Consider additional evaluation with transesophageal echocardiogram or CT/MRI
MRI brain: No acute intracranial abnormality.
Seizure activity:
-note, presented with reports of left-sided weakness and expressive aphasia. The patient was not a TNK candidate.
-was intubated for acute hypoxemic and hypercapnic respiratory failure, extubated 09/03/24
-EEG above, no seizure activity
-MRI brain above, unremarkable
-was febrile, now fever has resolved (coincides with Precedex being stopped)
-ID saw in c/s on 09/03/24. I spoke to Dr. Salmeron at the time and he felt LP was not needed (nor empiric abx). As per discussion with ID on 09/04/24 and 09/05/24, no evidence of infection and no abx are needed.
-BCxs NGTD
-no leukocytosis
-has been on Keppra. Case discussed with Dr. Woods today. Patient's seizure activity was likely due to hypertensive encephalopathy/emergency as per discussion with Dr. Woods. He states the pt's Keppra can be decreased to 500mg PO BID and that she can
be discharged.
Hypertensive emergency:
-was on nicardipine gtt, now off
-allow for permissive HTN
-Echo above with concern for R atrial mass. No MELY at this time as per cardiology.
-Blood pressures have been reviewed. No indication for oral antihypertensive therapy on discharge at this time. She will need her blood pressure closely monitored in the outpatient setting.
Other problems:
Note, MELY with lipomatous hypertrophy of septum consistent with normal variant. No evidence of significant right atrial mass.
Hypokalemia, resolved
Total time spent on d/c = 32 min. This included today's physical exam, progress note, review of laboratory and diagnostic data, preparation of discharge documents and prescriptions, and discussions about the pt's hospital course and discharge plan
with the patient and other certified medical technician assistant involved in the patient's care.
Anticipated Discharge: Today
Subjective/Interval History
-
Date of Service: September 05, 2024
Denies CP/SOB.
Objective Data
-
Vital Signs:
Vital Signs
Temp Pulse Resp BP Pulse Ox
99 F 83 18 125/88 100
09/05/24 07:45 09/05/24 07:45 09/05/24 07:45 09/05/24 07:45 09/05/24 07:45
I&O
09/04/24 09/05/24 09/06/24
06:59 06:59 06:59
Intake Total 1229.9 / 1229.9 600 / 600
Output Total 590 / 590
Balance 639.9 / 639.9 600 / 600
--- NOTE | 2024-09-05 11:57 | W.PN.NEURO.1 ---
Today's Communication / Plan
-
Patient may be discharged home on blood pressure medications and Keppra 500 twice daily. She will continue Keppra 500 twice a day for 3 weeks and taper down to 500 mg once a day and for a week and then stop
Neuro Assessment/Plan
Assessment
59-year-old lady with history of uncontrolled hypertension who had been admitted with left-sided weakness and seizures. Requiring intubation she was placed on Nicardipine drip, Keppra and propofol and has had no further seizures. EEG showed
diffuse slowing of the background frequencies without epileptiform discharges
She has been extubated and she is at baseline and has no neurological or cognitive deficits
Plan
1. Blood pressure management
2. Keppra 500 mg twice a day
Subjective/Objective
Subjective Data
Date of Service: September 05, 2024
Ms. Rodriguez is doing well has had no further episodes following extubation. Blood pressure is controlled. Echocardiogram showed no cardiac anomaly
Objective Data
Vital Signs
Temp Pulse Resp BP Pulse Ox
37.2 C 83 18 125/88 100
09/05/24 07:45 09/05/24 07:45 09/05/24 07:45 09/05/24 07:45 09/05/24 07:45
Lab Results
09/04/24 04:07
09/04/24 04:07
PT 14.3 Sec (11.4-14.6) 09/02/24 03:24
INR 1.12 09/02/24 03:24
APTT 23.8 Sec (23.4-35.0) 09/02/24 03:24
Sodium 137 mmol/L (135-145) 09/04/24 04:07
Potassium 3.9 mmol/L (3.5-5.1) 09/04/24 04:07
BUN 5 mg/dl (7-17) L 09/04/24 04:07
Glucose 104 mg/dl (70-99) H 09/04/24 04:07
Calcium 9.9 mg/dl (8.4-10.2) 09/04/24 04:07
Phosphorus 2.9 mg/dl (2.5-4.5) 09/02/24 11:06
LDL Cholesterol, Calc 171 mg/dl 09/02/24 03:24
Ur Buprenorphine Cancelled 09/01/24 22:14
Patient Allergies
No Known Allergies Allergy (Verified 09/01/24 19:14)
Physical Exam
-
General: Well Developed, Well Nourished, No Apparent Distress and Comfortable
Eyes: Able to visualize OU, Unremarkable and Round OU
HEENT: Normocephalic, Atraumatic and Anicteric
Neck: No Bruits Bilaterally and Full Range of Motion
Respiratory: Clear to Auscultation
Cardiac: Regular Rhythm, No Murmur and S1/S2
GI: Normal Bowel Sounds
Skin: Unremarkable
Extremities: No Clubbing, No Cyanosis and No Edema
Psych: Unremarkable
Extended Neurological Exam
Mood & Affect: Mood Unremarkable
Attention Span & Concentration: Awake, Alert, Interactive and No Difficulty with 2 Step Request
Memory: Unremarkable and Able to Recall
Tremor: Hand Tremor Absent and Head Tremor Absent
Involuntary Movement: None
Speech: Quality Unremarkable, Quantity Unremarkable and Rate of Production Unremarkable
Cranial Nerve II: Left Eye: Pupillary Reactivity Unremarkable, Pupillary Size Unremarkable and Visual [place] Grossly Intact
Cranial Nerve II: Right Eye: Pupillary Reactivity Unremarkable, Pupillary Size Unremarkable and Visual [place] Grossly Intact
Cranial Nerves III, IV, : Extraocular Movement: Extraocular Movement Full in all Directions
Cranial Nerve V: Facial Sensation: Intact to Light Touch
Cranial Nerve VII: Facial Symmetry: Normal Facial Symmetry
Cranial Nerve VIII: Hearing: Unremarkable Hearing to Normal Conversational Volume
Cranial Nerves IX, X: Palate Movement: Palate Elevation Symmetric
Cranial Nerve XI: Shoulder Shrug: Unremarkable
Cranial Nerve XII: Tongue Protusion: Midline
Muscle Strength, Overall: Full Throughout
Muscle Bulk & Tone: Bulk Unremarkable
Pronator Drift: No Drift in Upper Extremities and No Drift in Lower Extremities
Deep Tendon Reflexes: Trace Throughout
Cold Sensation: Unremarkable
Vibration Sensation: Unremarkable
Touch Sensation: Unremarkable
Coordination: [id number] Testing Unremarkable
Babinski Sign: Absent Bilaterally
Gait & Station: Unremarkable Arm Swing, Up from Seated Without Problem and Romberg Test Negative
Modified Wallace Score (MRS)
-
Modified Genaro Scale (mRS): No symptoms
Score: 0
--- NOTE | 2024-09-05 12:27 | CM ---
CM following re: discharge planning.
Reviewed pt's chart, met with pt.
Discharge order noted. Pt is aware and she stated her is coming to transport her home. Pt reports she is doing very well, independent with functional ability and pt stated she does not need any after care VN services.
Pt is aware of limitations of coverage by her insurance. CM provided pt with informations, applications and phone number for [employer], [employer] [place] for medical assistance and [employer] [place] to apply for Medicaid.
D/C plan: home no needs. to transport.
[2024-09-05 13:49] VITALS: BP 154/96
--- NOTE | 2024-09-05 13:53 | W.DCSUMMARY ---
Discharge Summary
Discharge Data
Date of Admission: 09/01/24
Date of Discharge: 09/05/24
-
Pending Results: No
Hospital Course
Primary Diagnoses:
Acute seizure due to acute hypertensive emergency/encephalopathy
Secondary Diagnoses:
Hypokalemia
Consultants:
Neurology
Critical care medicine
Infectious disease
Cardiology
Imaging:
CTA head/neck 09/01/24: No findings to suggest proximal intracranial arterial stenosis or vessel cut off bilaterally. Nonhemodynamically significant atherosclerotic changes in the carotid bulbs and proximal internal carotid arteries bilaterally. No
findings to suggest internal carotid artery or vertebral artery dissection bilaterally.
CXR 09/02/24: Stable positioning of the support lines and tubes. Minimal left basilar atelectasis, unchanged.
CT brain 09/02/24: No acute intracranial abnormality noted. Chronic opacification of the left maxillary and frontal sinuses.
EEG: This EEG is abnormal due to the presence of diffuse slowing of the background to delta to theta range frequencies but was at times normal. The study is consistent with mild to moderate diffuse cerebral dysfunction, nonspecific in etiology. An
episode of 'full body movement' had no epileptiform correlate. The study was limited at times by muscle artifact.
MRI brain: No acute intracranial abnormality.
Echo: Technically difficult study
Small left ventricle with normal left ventricular systolic function.
Left ventricular ejection fraction estimated by Alford's method 60-65%
Mild to moderate concentric left ventricular hypertrophy
Mildly reduced right ventricle systolic function with mildly increased right
ventricular wall thickness
Normal left atrial size.
Right atrium poorly visualized.
There is a nonmobile echodensity 2.4 x 2.0 cm in the right atrium; and limited
subcostal views this may represent lipomatous hypertrophy of the intra-atrial
septum however cannot exclude a right atrial mass.
Thickened mitral valve leaflets with adequate leaflet excursion. Trace mitral
regurgitation
Trileaflet, mildly sclerotic aortic valve without stenosis or significant
regurgitation
Trace tricuspid regurgitation
Estimated pulmonary artery pressure of 27 mmHg assuming a right atrial pressure
of 3 mmHg.
Trivial-small pericardial effusion
Dilated aortic root. Sinus of Valsalva measures 4.1 cm, sinotubular junction
measures 2.8 cm, ascending aorta measures 3.1 cm. Aortic arch not well
visualized.
Interatrial septum is poorly visualized but in limited subcostal views appears
lipomatous.
No study available for comparison
Study results discussed with primary service
Consider additional evaluation with transesophageal echocardiogram or CT/MRI
Hospital course: 59 y/o F who presented with left-sided weakness and expressive aphasia as outlined in the H&P done on admission. Hospital course per problem list:
Acute seizure due to acute hypertensive emergency/encephalopathy: The patient presented with reports of left-sided weakness and expressive aphasia. The patient was not a TNK candidate. In the ER the patient had a tonic-clonic seizure. She was
intubated for acute hypoxemic and hypercapnic respiratory failure as well as airway protection and extubated on 09/03/24. She was placed on Keppra. Workup was unrevealing. EEG above and without seizure activity. MRI brain above and was
unremarkable. The patient initially had fever which resolved. It appears this coincided with her Precedex infusion. Infectious disease saw in consult on 09/03/24. As per Dr. Salmeron at the time and he felt lumbar puncture was not needed (nor
empiric antibiotic). As per discussion with infectious disease on 09/04/24 and 09/05/24, no evidence of infection and no antibiotics were needed. Blood cultures were no growth to date. She did not have a leukocytosis. On the day of discharge the
case was discussed with Dr. Woods. The patient's seizure activity was likely due to hypertensive encephalopathy/emergency as per discussion with Dr. Woods. He stated that the patient's Keppra could be decreased to 500mg PO BID and that she could be
discharged.
Hypertensive emergency: On admission the patient was placed on nicardipine drip which was weaned off. The patient had a transthoracic echocardiogram with concern for right atrial mass. The patient had a transesophageal echocardiogram which did not
show a right atrial mass. Patient's blood pressures improved without further antihypertensive medications after the nicardipine drip was stopped. There was no indication for oral antihypertensive therapy at the time of discharge. She will need her
blood pressure closely monitored in the outpatient setting. The patient was instructed to follow-up with her primary care physician in 2 days for blood pressure check. She verbally acknowledged understanding of this.
Discharge Plan
-
Patient Disposition: Home (Routine Discharge)
Discharge Diagnosis/Procedures: Acute seizure due to acute hypertensive emergency/encephalopathy
Condition: Good
Diet: No restrictions
Activity: As tolerated
Driving Restrictions: As prior to admission
Activity Restrictions/Additional Instructions:
You need to see your primary care physician on September 07, 2024 for a blood pressure check and routine follow-up.
Referrals:
UNKNOWN - PT NOT,[facility] [Family Provider] - in one to two days
Prescriptions:
New
levetiracetam [Keppra] 500 mg tablet
500 mg PO BID Qty: 60 0RF
thiamine HCl (vitamin B1) 100 mg Tablet
100 mg PO BID Qty: 0 0RF
folic acid 1 mg tablet
1 mg PO DAILY Qty: 30 0RF
Discharge Orders:
Discharge Patient (As Directed); Ordered 09/05/24
Ordered By: Kory Najera
Discharge Date and Time
Print Language: SWEDISH
--- NOTE | 2024-09-05 14:00 | PTCARENOTE ---
Confirmed with Dr. Najera that patient okay for discharge considering Vital Signs immediately prior to discharge (See EMR).
Reeducated on importance of following up with PCP on Saturday and monitoring Vital Signs. Patient and patient's spouse in agreement. Went over discharge instructions.
== END 2024-09-05 15:05 | disposition home or self-care (01) | DRG 100 ==
LOC: 4 EAST ACU 21:11
PROVIDERS: Internal Medicine; Internal Medicine Cardiovascular Disease; Nurse Practitioner Primary Care; ADMITTING PHYSICIAN Internal Medicine; ATTENDING PHYSICIAN Internal Medicine; CONSULT PHYSICIAN Internal Medicine Cardiovascular Disease; CONSULT PHYSICIAN Psychiatry & Neurology Neurology; CONSULT PHYSICIAN Student in an Organized Health Care Education/Training Program; EMERGENCY PHYSICIAN Emergency Medicine
PROC: 0BH17EZ Insertion of Endotracheal Airway into Trachea, Via Natural or Artificial Opening (ICD-10-PCS; 2024-09-01)
PROC: 5A1945Z Respiratory Ventilation, 24-96 Consecutive Hours (ICD-10-PCS; 2024-09-01)
PROC: B24BZZ4 Ultrasonography of Heart with Aorta, Transesophageal (ICD-10-PCS; 2024-09-04)
DX: G40.909 Epilepsy, unspecified, not intractable, without status epilepticus (principal); J96.01 Acute respiratory failure with hypoxia; J96.02 Acute respiratory failure with hypercapnia; I67.4 Hypertensive encephalopathy; G81.94 Hemiplegia, unspecified affecting left nondominant side; I16.1 Hypertensive emergency; J98.11 Atelectasis; E87.1 Hypo-osmolality and hyponatremia; E87.6 Hypokalemia; E83.42 Hypomagnesemia; R50.2 Drug induced fever; T42.6X5A Adverse effect of other antiepileptic and sedative-hypnotic drugs, initial encounter
CPT/HCPCS: 31500; 36600; 70450; 70496; 70498; 70551; 71045; 71275; 80048; 80053; 80061; 80306; 81003; 82077; 82805; 82962; 83036; 83735; 84100; 84478; 84484; 85025; 85027; 85610; 85730; 87040; 92610; 93005; 93306; 93312; 93320; 93325; 94002; 94003; 95816; 97116; 97129; 97163; 97167; 99285; Q9967

== ENCOUNTER 2025-10-13 20:41 | Emergency (ER) | payer OTHER, SELFPAY ==
[2025-10-13 21:05] VITALS: BP 170/112
[2025-10-13 21:40] LABS: Hematocrit 34.0 % (37.0-47.0); Hemoglobin 11.8 g/dL (12.0-16.0); Mean Corp Hgb Conc. 34.7 g/dL (33.0-37.0); Mean Corpuscular Volume 98.0 fL (81.0-99.0); Nucleated Red Blood Cells % 0 %; Platelet Count 175 10^3/uL (130-400); Red Cell Dist. Width 13.6 % (11.5-14.5)
[2025-10-13 21:48] LABS: ALT (SGPT) 28 U/L (0-35); AST (SGOT) 60 U/L (14-36); Albumin 5.2 g/dl (3.5-5.0); Alkaline Phosphatase 102 U/L (38-126); Blood Urea Nitrogen 10 mg/dl (7-17); Calcium 9.8 mg/dl (8.4-10.2); Carbon Dioxide 22 mmol/L (22-30); Chloride 87 mmol/L (98-107); Glucose 116 mg/dl (70-99); Lipase 238 U/L (23-300); Potassium 4.2 mmol/L (3.5-5.1); Sodium 127 mmol/L (135-145); Total Protein 8.4 g/dl (6.3-8.2); eGFR > 60.00
[2025-10-13 22:13] VITALS: BP 154/107
[2025-10-14] VITALS: BP 152/123
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
[2025-10-14] MEDS: ATIVAN 1 MG PO (00:15)
[2025-10-14] MEDS: NSS 1000 IV (00:16)
[2025-10-14 00:17] VITALS: BP 154/111
[2025-10-14 00:18] LABS: Urine Character Clear (Clear)
[2025-10-14 00:33] LABS: Urine Red Blood Cell 0-2 /HPF (0-2); Urine White Cell 0-2 /HPF (0-5)
[2025-10-14 01:00] VITALS: BP 130/81
== END 2025-10-14 02:20 | disposition home or self-care (01) ==
LOC: EMR 20:41
PROVIDERS: Emergency Medicine; EMERGENCY PHYSICIAN Student in an Organized Health Care Education/Training Program
DX: R56.9 Unspecified convulsions (principal); E87.1 Hypo-osmolality and hyponatremia; R00.0 Tachycardia, unspecified; R01.1 Cardiac murmur, unspecified; I10 Essential (primary) hypertension
CPT/HCPCS: 99284; 96374; 70450; 80053; 80306; 81003; 81015; 83690; 85025

== ENCOUNTER 2025-10-19 22:33 | Emergency (ER) | payer SELFPAY ==
[2025-10-19 22:34] VITALS: BP 133/96
[2025-10-19 22:36] VITALS: BP 133/96
[2025-10-19 22:38] VITALS: BMI 21.1
--- NOTE | 2025-10-20 02:58 | DOWNTIME ---
There was a [employer] Downtime on 10/20/2025 from 0100 to 10/20/2025 at 0255. Downtime documentation of patient's care, including medication administrations, has been reconciled in the electronic record per guidelines. Refer to the
patient's paper chart under the miscellaneous tab to see printed paper medication records and downtime forms.
--- NOTE | 2025-10-20 03:33 | ED.GENMED ---
History of Present Illness
<Jennifer Natarajan PA-C - Last Filed: 10/20/25 11:47>
General
Chief Complaint: Alcohol Problem
Source: patient
Exam Limitations: none
Time Seen by Provider: 10/20/25 03:19
Nursing documentation reviewed up to this point in time: agreed with
History of Present Illness
History of Present Illness:
Note:
CHIEF COMPLAINT(S)
alcohol intoxication
HISTORY OF PRESENT ILLNESS
The patient is a 60-year-old female with no pmh on no daily medication who presents to the ER today via EMS. EMS reports that patient was found lying in the bushes [place] [facility] The restaurant staff reported that she had 5
glasses of wine and was seen with her who left her at the restaurant. She resented to the emergency department with significant fatigue and disorientation, acutely intoxicated. She does admit to drinking. She denies any other substance
ingestion. She is not sure if she fell or hit her head or lost consciousness. She has no headache, neck pain, dizziness, nausea, vomiting at this time. She expressed feeling extremely tired and has difficulty engaging in a coherent conversation. She
repeatedly states, 'leave me alone so that I can sleep.' The patient mentioned having a lot going on in his life, suggesting possible stress or psychosocial factors contributing to her condition. She reports feeling embarrassed. She denies chest
pain, shortness of breath.
PHYSICAL EXAM
General: Somnolent
Skin: Warm, dry.
Head: Normocephalic, atraumatic. No tenderness to palpation of the facial bones
Neck: Supple, trachea midline. No pain reported.
No midline spinal tenderness.
Eye Ears, nose, mouth and throat: Oral mucosa moist.
Cardiovascular: Regular rate and rhythm, no murmurs. Normal peripheral perfusion, No edema.
Respiratory: Respirations are non-labored. No wheezes, rales, or rhonchi
Gastrointestinal : Abdomen nondistended. No abdominal tenderness to palpation.
Back: Normal range of motion, Normal alignment.
Musculoskeletal: Normal ROM, normal strength.
Neurological: Alert though confused, oriented to person but unclear about situation. No focal neurological deficit observed.
Psychiatric: Cooperative, but exhibited signs of stress and fatigue, appropriate mood & affect.
PLAN
The plan is to draw blood to evaluate the sodium levels and other laboratory tests as necessary as recently her sodium was 127. The patient will be closely monitored due to her intoxication and fatigue. IV fluids will be given. She will be
discharged when she is sober.
DIFFERENTIAL DIAGNOSIS
The Differential Diagnosis includes, in no particular order and is not limited to:
1. Hyponatremia
2. Acute stress reaction
3. Depression
4. Hypothyroidism
5. Chronic fatigue syndrome
6. Electrolyte imbalance
7. Adrenal insufficiency
8. Dehydration
9. Hepatic encephalopathy
10. Sleep disorders
CHART REVIEW
09/05/24: patient discharged from the hospital after acute seizure due to acute hypertensive emergency/encephalopathy
CTA head/neck 09/01/24: No findings to suggest proximal intracranial arterial stenosis or vessel cut off bilaterally. Nonhemodynamically significant atherosclerotic changes in the carotid bulbs and proximal internal carotid arteries bilaterally. No
findings to suggest internal carotid artery or vertebral artery dissection bilaterally.
CXR 09/02/24: Stable positioning of the support lines and tubes. Minimal left basilar atelectasis, unchanged.
CT brain 09/02/24: No acute intracranial abnormality noted. Chronic opacification of the left maxillary and frontal sinuses.
EEG: This EEG is abnormal due to the presence of diffuse slowing of the background to delta to theta range frequencies but was at times normal. The study is consistent with mild to moderate diffuse cerebral dysfunction, nonspecific in etiology.
UPDATE
On multiple assessments, patient remains somnolent and is not clinically sober, will continue to monitor for extended period of time
MDM/DISPOSITION
The patient is a 60-year-old female with no pmh on no daily medication who presents to the ER today via EMS. EMS reports that patient was found lying in the [place] [employer] after drinking multiple glasses of wine.
CT of the head unremarkable.
Non-focal neuro exam.
No signs of trauma.
No longer hyponatremic from prior drawings.
On reassessment at 7:00 am, patient is clinically sober, walking with steady gait, clear speech, in no acute distress. Answering questions appropriately. I did offer alcohol cessation resources which she is declining at this time.
I did offer to call patient's but she states he cannot pick her up. I did offer to call patient's ER contact her neighbor but she is refusing this. She will be discharged to the waiting room. She does not have cell phone on her.
She was seen using ER phone to arrange taxi service.
Patient safe for discharge
Past History
<Jennifer Natarajan PA-C - Last Filed: 10/20/25 11:47>
Past History
ED Past Medical History: None
ED Past Surgical History: None
Social History
Tobacco: Non-smoker
Alcohol: Daily
Phy Exam
<Jennifer Natarajan PA-C - Last Filed: 10/20/25 11:47>
Physical Exam
Physical Exam:
see hpi
Scores
<Jennifer Natarajan PA-C - Last Filed: 10/20/25 11:47>
Withdrawal Assessment of Alcohol
Withdrawal Assessment Completed?: No
Course
<Jennifer Natarajan PA-C - Last Filed: 10/20/25 11:47>
Orders/Labs/Results
Orders:
Orders
10/20/25 00:04
CT Head W/o Iv Contrast Urgent
Comment:
Reason For Exam: AMS, possible Trauma, etoh
10/20/25 03:31
IV Insert/Care/Rem.- Treatment PRN
10/20/25 04:13
Basic Metabolic Panel Urgent
Comment: NO K
Complete Blood Count/With Diff Urgent
10/20/25 04:16
0.9% Sodium Chloride 1000 ml [Nss] 1,000 ml IV BOLUS
Abnormal Lab Results
10/20/25
04:13
WBC 4.6 L 10^3/uL
(4.8-10.8)
RBC 3.27 L 10^6/uL
(4.20-5.40)
Hgb 11.4 L g/dL
(12.0-16.0)
Hct 33.1 L %
(37.0-47.0)
MCV 101.2 H fL
(81.0-99.0)
MCH 34.9 H pg
(27.0-31.0)
Neutrophils % 41.5 L %
(42.2-75.2)
Monocytes % 10.2 H %
(1.7-9.3)
Carbon Dioxide 21 L mmol/L
(22-30)
10/20/25 04:13
10/20/25 04:13
Vital Signs
Initial and Last Documented VS:
Initial Vital Signs
Temp Pulse Resp BP Pulse Ox
98.2 F 83 18 133/96 100
10/19/25 22:34 10/19/25 22:34 10/19/25 22:34 10/19/25 22:34 10/19/25 22:34
Last Documented Vital Signs
Temp Pulse Resp BP Pulse Ox
98.2 F 82 18 111/76 96
10/19/25 22:34 10/20/25 05:41 10/20/25 05:41 10/20/25 05:41 10/20/25 05:41
Maliklt;Wing Lucas, DO - Last Filed: 10/20/25 04:52>
Orders/Labs/Results
Orders:
Orders
10/20/25 00:04
CT Head W/o Iv Contrast Urgent
Comment:
Reason For Exam: AMS, possible Trauma, etoh
10/20/25 03:31
IV Insert/Care/Rem.- Treatment PRN
10/20/25 04:13
Basic Metabolic Panel Urgent
Comment: NO K
Complete Blood Count/With Diff Urgent
10/20/25 04:16
0.9% Sodium Chloride 1000 ml [Nss] 1,000 ml IV BOLUS
Abnormal Lab Results
10/20/25
04:13
WBC 4.6 L 10^3/uL
(4.8-10.8)
RBC 3.27 L 10^6/uL
(4.20-5.40)
Hgb 11.4 L g/dL
(12.0-16.0)
Hct 33.1 L %
(37.0-47.0)
MCV 101.2 H fL
(81.0-99.0)
MCH 34.9 H pg
(27.0-31.0)
Neutrophils % 41.5 L %
(42.2-75.2)
Monocytes % 10.2 H %
(1.7-9.3)
Carbon Dioxide 21 L mmol/L
(22-30)
10/20/25 04:13
10/20/25 04:13
Vital Signs
Initial and Last Documented VS:
Initial Vital Signs
Temp Pulse Resp BP Pulse Ox
98.2 F 83 18 133/96 100
10/19/25 22:34 10/19/25 22:34 10/19/25 22:34 10/19/25 22:34 10/19/25 22:34
Last Documented Vital Signs
Temp Pulse Resp BP Pulse Ox
98.2 F 82 18 111/76 96
10/19/25 22:34 10/20/25 05:41 10/20/25 05:41 10/20/25 05:41 10/20/25 05:41
<Jennifer Natarajan PA-C - Last Filed: 10/20/25 11:47>
*Pulse Oximetry
SaO2: 98
Oxygen Mode of Delivery: Room air
Patient hypoxic: no
*Critical Care Note
Total Time (30-74mins, 75-104mins- exclusive of procedures): Not Applicable
ED Attending Note
<Jennifer Natarajan PA-C - Last Filed: 10/20/25 11:47>
-
Portions of this chart may have been created with voice recognition software.� Occasional wrong word or��sound alike� substitutions may have occurred due to the inherent limitations of voice recognition software.
<Wing Lucas DO - Last Filed: 10/20/25 04:52>
ED Attending Note
Patient seen and examined by attending physician: Yes
I performed the substantive portion of visit, reviewed & personally made and approve the management plan that is documented in note by myself or CECILE.: Yes
ED Attending Note:
60-year-old female presents after being found passed out outside of a restaurant. She readily admits to drinking alcohol and being intoxicated. She is not sure if she hit her head so CAT scan was performed. Patient was seen in conjunction with
the [facility]. I have reviewed and agree with her history and treatment plan. On independent physical exam patient is inebriated appearing. She is attempting to walk but stumbling. We advised her to get back into the. She states that she wanted to
find her phone. She did not bring a phone with her. She does not feel that her will be able to pick her up because he is also intoxicated according to her. Patient willing to lay in the bed to sober up until she can get in touch with
someone to pick her up.
Discharge Plan
Departure
Patient Disposition: Home (Routine Discharge)
Date of Disposition: 10/20/25
Time of Disposition: 06:51
Patient with high blood pressure during this ER visit?: Yes
Condition: Good
Discharge Problem:
Acute alcohol intoxication
Instructions: Alcohol use - When is drinking a problem?, Alcohol and your health, BLOOD PRESSURE
Prescriptions:
No Action
levetiracetam [Keppra] 500 mg tablet
500 mg PO BID Qty: 60 0RF
thiamine HCl (vitamin B1) 100 mg Tablet
100 mg PO BID Qty: 0 0RF
folic acid 1 mg tablet
1 mg PO DAILY Qty: 30 0RF
lorazepam [Ativan] 1 mg tablet
1 mg PO BID PRN (Reason: agitation) Qty: 14 0RF
thiamine HCl (vitamin B1) 100 mg capsule
100 mg PO BID 30 Days Qty: 60 0RF
Referrals:
UNKNOWN - PT NOT,INTERVIEWE [Family Provider]
Activity Restrictions/Additional Instructions:
Please follow up with your primary care provider. You are mildly anemic.
PLEASE RETURN TO ER SHOULD YOU DEVELOP CHEST PAIN OR SHORTNESS OF BREATH, ABDOMINAL PAIN, FEVERS OR CHILLS, INTRACTABLE NAUSEA OR VOMITING, OR
SHOULD YOU WANT HELP FOR ALCOHOL USE DISORDER.
Interventions
Interventions:
*Risk Screen - Suicide Last Done: 10/19/25 22:38
*General Assessment Last Done: 10/19/25 22:41
*Neglect/Abuse Screening Last Done: 10/19/25 22:38
*ED- Fall Risk Assessment Last Done: 10/19/25 22:38
*ED COVID-19 Vaccine History Last Done: 10/19/25 22:38
*ED Influenza Vaccine History Last Done: 10/19/25 22:38
*Nursing Disposition Last Done: 10/20/25 07:05
ED- Neurological Assessment Last Done: 10/19/25 22:39
ED-Psychological Assessment Last Done: 10/19/25 22:39
Discharge Date and Time
Discharge Date/Time: 10/20/25 07:25
Print Language: FAROESE
[2025-10-20] MEDS: NSS 1000 IV (04:16)
[2025-10-20 04:43] LABS: Hematocrit 33.1 % (37.0-47.0); Hemoglobin 11.4 g/dL (12.0-16.0); Mean Corp Hgb Conc. 34.4 g/dL (33.0-37.0); Mean Corpuscular Volume 101.2 fL (81.0-99.0); Nucleated Red Blood Cells % 0 %; Platelet Count 275 10^3/uL (130-400); Red Cell Dist. Width 13.6 % (11.5-14.5)
[2025-10-20 05:12] LABS: Blood Urea Nitrogen 9 mg/dl (7-17); Calcium 9.2 mg/dl (8.4-10.2); Carbon Dioxide 21 mmol/L (22-30); Chloride 103 mmol/L (98-107); Estimated Creatinine Clearance 92 ml/min; Glucose 99 mg/dl (70-99); Sodium 138 mmol/L (135-145); eGFR > 60.00
[2025-10-20 05:39] VITALS: BP 111/76
[2025-10-20 05:41] VITALS: BP 111/76
== END 2025-10-20 07:25 | disposition home or self-care (01) ==
LOC: EMR 22:33
PROVIDERS: Physician Assistant; EMERGENCY PHYSICIAN Student in an Organized Health Care Education/Training Program
DX: F10.129 Alcohol abuse with intoxication, unspecified (principal); R03.0 Elevated blood-pressure reading, without diagnosis of hypertension
CPT/HCPCS: 99284; 96360; 70450; 80048; 85025